=== PATIENT | male | born 1970 | race Caucasian/White ===

== ENCOUNTER 2016-07-31 10:51 | Emergency (ER) | payer OTHER ==
[~2016-07-31] VITALS: Ht 182.9 cm; Wt 106.0 kg
[~2016-07-31 10:51] MED LIST: BUSP10 PO; FLUP10TA5 PO; FLUT50SP EACH NARE; LOSA50TA PO; PROP10TA26 PO; TRAZ100 PO
[2016-07-31 11:01] VITALS: BP 150/76; PULSE 85; RESP 20; TEMP 98; O2SAT 95
--- NOTE | 2016-07-31 11:14 | PD ---
HPI Chief Complaint: Psychiatric Symptoms Time Seen by Provider: 11:00 Travel History International Travel<30 days: No Contact w/Intl Traveler<30days: No Traveled to known affect area: No History of Present Illness HPI The patient is a 46-year-old male who presents emergency [place] a [employer] act. The patient has a history of schizoaffective disorder, is currently having delusions that the "Cult" is out to get him. The patient also states that he has transmitted is in his head and has been having bowel movements containing microwaves. The patient also states that he loaned Pres. Ivaluaump his first one million dollars. The patient does have a history of schizoaffective disorder, has not taken his fluphenazine or trazodone over the last 2 days. He denies any alcohol use, does smoke marijuana occasionally. He denies any current suicidal or homicidal ideation. He is currently having delusions, but denies any auditory or visual hallucinations. He denies any current physical complaints. PFSH Past Medical History Hx Anticoagulant Therapy: No Arthritis: No Asthma: No Bipolar Disorder: Yes Anxiety: Yes Depression: Yes Heart Rhythm Problems: No Cardiovascular Problems: No High Cholesterol: No Chemotherapy: No Chest Pain: No Congestive Heart Failure: No COPD: No Cerebrovascular Accident: Yes (htn) Diabetes: No Diminished Hearing: No Gastrointestinal Disorders: No GERD: No Glaucoma: Yes Genitourinary: No Headaches: No Hepatitis: No Hiatal Hernia: No Hypertension: Yes Kidney Stones: No Musculoskeletal: No Neurologic: No Psychiatric: Yes (SCHIZO-AFFECTIVE) Reproductive: No Respiratory: Yes (COPD) Immunizations Current: Yes Migraines: No Myocardial Infarction: No Renal Failure: No Schizophrenia: Yes Sleep Apnea: No Ulcer: No Past Surgical History Abdominal Surgery: No Appendectomy: No Cardiac Surgery: No Cholecystectomy: No Ear Surgery: No Endocrine Surgery: No Eye Surgery: No Genitourinary Surgery: No Gynecologic Surgery: No Neurologic Surgery: No Oral Surgery: No Thoracic Surgery: No Other Surgery: Yes (BB removal) Social History Alcohol Use: No (DENIES) Tobacco Use: Yes (2-3 PPD) Substance Use: Yes (MARIJUANA OCCASIONALLY) Allergies-Medications (Allergen,Severity, Reaction): Coded Allergies: Depakote (Verified Allergy, Severe, HIVES, 02/10/16) [place] (Verified Allergy, Severe, HIVES, 02/10/16) Neurontin (Verified Allergy, Severe, 'GET(S) HOT AND OTHER BAD THINGS, ) Abilify (Verified Allergy, Intermediate, SPIKES HIS BP, 02/10/16) Tegretol (Verified Allergy, Mild, 02/10/16) Reported Meds & Prescriptions Reported Meds & Active Scripts Active Fluticasone Nasal [place] 50 Mcg/Act Naspr 50 Mcg EACH NARE BID 50 mcg/spray Losartan (Losartan Potassium) 50 Mg Tab 50 Mg PO DAILY Reported Buspar 10 Mg Ta10 Mg 10 Mg Tab 10 Mg PO Q8 [id number] Mg 10 Mg Tab 10 Mg PO BID Trazodone HCl 100 Mg Tab 100 Mg PO HS Prolixin (Fluphenazine HCl) 10 Mg Tab 10 Mg PO BID Review of Systems Except as stated in HPI: all other systems reviewed are Neg General / Constitutional: No: Fever HENT: No: Lightheadedness Cardiovascular: No: Chest Pain or Discomfort Respiratory: No: Shortness of Breath Gastrointestinal: No: Nausea, Vomiting, Abdominal Pain Musculoskeletal: No: Weakness Psychiatric: Positive: Disorder of Thought, Substance Abuse (marijuana use), No: Suicidal Ideations, Homicidal Ideation Physical Exam Narrative GENERAL: Awake, alert, pleasant 46-year-old male who appears his stated age and is in no acute respiratory distress. SKIN: Focused skin assessment warm/dry. HEAD: Atraumatic. Normocephalic. EYES: Pupils equal and round. Pupils are 3 mm bilateral. ENT: No nasal bleeding or discharge. Poor dentition. NECK: Trachea midline. No JVD. CARDIOVASCULAR: Regular rate and rhythm. No murmur appreciated. RESPIRATORY: No accessory muscle use. Clear to auscultation. Breath sounds equal bilaterally. GASTROINTESTINAL: Abdomen soft, non-tender, nondistended. No rebound tenderness. MUSCULOSKELETAL: No obvious deformities. No clubbing. No cyanosis. No edema. NEUROLOGICAL: Awake and alert. No obvious cranial nerve deficits. Motor grossly within normal limits. Normal speech. Nonfocal. Oriented 5. PSYCHIATRIC: Obvious delusions upon interview. Data Data Last Documented VS Vital Signs Date Time Temp Pulse Resp B/P Pulse Ox O2 Delivery O2 Flow Rate FiO2 07/31/16 11:01 98.0 85 20 150/76 95 Orders Complete Blood Count With Diff (07/31/16 11:07) Comprehensive Metabolic Panel (07/31/16 11:07) Psych Screen (07/31/16 11:07) Drug Screen, Random Urine (07/31/16 11:07) Alcohol (Ethanol) (07/31/16 11:07) MDM Medical Decision Making Medical Screen Exam Complete: Yes Emergency Medical Condition: Yes Medical Record Reviewed: Yes Differential Diagnosis Differential diagnosis includes schizoaffective disorder, schizophrenia, psychosis, delusional disorder, noncompliance, substance induced mood disorder. Narrative Course Labs were drawn and sent. Psychiatric evaluation was ordered. Condition: Stable Xander Chun MD July 31, 2016 11:14
[2016-07-31] MEDS ORDERED: FLUP10TA PO (11:20)
[2016-07-31] MEDS ORDERED: PROP10TA6 PO (11:20)
[2016-07-31] MEDS ORDERED: TRAZ100T4 PO (11:20)
[2016-07-31 11:32] LABS: AUTOMATED NEUTROPHIL # 12.8 TH/MM3 (1.8-7.7); BASOPHIL # 0.1 TH/MM3 (0-0.2); BASOPHIL % 0.8 % (0.0-2.0); EOSINOPHIL # 0.2 TH/MM3 (0-0.4); EOSINOPHIL % 1.3 % (0.0-4.0); HEMATOCRIT 46.5 % (39.0-51.0); HEMO FLAGS DIFF FINAL; LYMPH % 17.6 % (9.0-44.0); LYMPHOCYTE # 3.1 TH/MM3 (1.0-4.8); MEAN CELL VOLUME 87.2 FL (80.0-100.0); MEAN CORPUSCULAR HEMOGLOBIN 30.1 PG (27.0-34.0); MEAN CORPUSCULAR HGB CONC 34.5 % (32.0-36.0); MONO % 8.5 % (0.0-8.0); NEUT % 71.8 % (16.0-70.0); PLATELET COUNT 340 TH/MM3 (150-450); RED BLOOD COUNT 5.33 MIL/MM3 (4.50-5.90); RED CELL DISTRIBUTION WIDTH 14.7 % (11.6-17.2); WHITE BLOOD COUNT 17.8 TH/MM3 (4.0-11.0)
[2016-07-31 11:52] LABS: ALT (GPT) 23 U/L (12-78); ANION GAP 10 MEQ/L (5-15); AST (GOT) 29 U/L (15-37); BICARBONATE 24.4 MEQ/L (21.0-32.0); BLOOD UREA NITROGEN 9 MG/DL (7-18); CHLORIDE 103 MEQ/L (98-107); GLOMERULAR FILTRATION RATE 86 ML/MIN (>89); POTASSIUM 3.7 MEQ/L (3.5-5.1); SODIUM (NA) 137 MEQ/L (136-145)
[2016-07-31 11:54] LABS: ALKALINE PHOSPHATASE 96 U/L (45-117); TOTAL BILIRUBIN ADULT 0.5 MG/DL (0.2-1.0)
[2016-07-31 13:13] LABS: AMPHETAMINE, URINE NEG (NEG); BARBITURATES, URINE NEG (NEG); COCAINE, URINE NEG (NEG)
[2016-07-31 15:46] VITALS: BP 146/86; PULSE 74; RESP 20; TEMP 98.6; O2SAT 96
--- NOTE | 2016-07-31 16:38 | PD ---
History of Present Illness Chief Complaint: Psychiatric Symptoms Time Seen by Provider: 16:30 Travel History International Travel<30 Days: No Contact w/Intl Traveler<30days: No Known affected area: No Legal Status Legal Status: Kraft Act K[employer] Act Signed By: Osmel Best History of Present Illness: History of Present Illness HPI The patient is a 46-year-old male with history of schizoaffective disorder bipolar type who presents emergency department [place] as a [employer] act. As per ED documentation included here " The patient has a history of schizoaffective disorder, is currently having delusions that the "Cult" is out to get him. The patient also states that he has transmitters is in his head and has been having bowel movements containing microwaves. The patient also states that he loaned Pres. Trump his first one million dollars." Patient is seen in J pod. Alert and oriented. He is calm. Speech is pressured. He tells me that he has not taken his medication because [place] [address] [place] . He also states that him being here is a big mistake and that Dr. Garcia knows him and that he will not harm anyone and he does not want to harm himself either. He does not want to discuss any other information because " Dr. Garcia and Frank at [facility] know me and know that I I am just a nice saniya with a real bad disease. He nevertheless agrees to remain here until we can obtain further information as well as to get back on his medication. . Telephone call to his mother , Ms Hu at [phone]. She reports that patient cashed his check on the third and left the house and did not return to the house until today. She states that he has been making "odd statements" such as that she was trying to turn the sun off, talking to his invisible man as well as not having slept in 3 days. She counted his medications and he has not taken his medications in over 1 week. His girlfriend committed suicide in May of 2016 and she believes that he has not been dealing well with this loss. PFSH Past Medical History Hx Anticoagulant Therapy: No Arthritis: No Asthma: No Bipolar Disorder: Yes Anxiety: Yes Depression: Yes Heart Rhythm Problems: No Cardiovascular Problems: No High Cholesterol: No Chemotherapy: No Chest Pain: No Congestive Heart Failure: No COPD: No Cerebrovascular Accident: Yes (htn) Diabetes: No Diminished Hearing: No Gastrointestinal Disorders: No GERD: No Glaucoma: Yes Genitourinary: No Headaches: No Hepatitis: No Hiatal Hernia: No Hypertension: Yes Kidney Stones: No Musculoskeletal: No Neurologic: No Psychiatric: Yes (SCHIZO-AFFECTIVE) Reproductive: No Respiratory: Yes (COPD) Immunizations Current: Yes Migraines: No Myocardial Infarction: No Renal Failure: No Schizophrenia: Yes Sleep Apnea: No Ulcer: No Past Surgical History Abdominal Surgery: No Appendectomy: No Cardiac Surgery: No Cholecystectomy: No Ear Surgery: No Endocrine Surgery: No Eye Surgery: No Genitourinary Surgery: No Gynecologic Surgery: No Neurologic Surgery: No Oral Surgery: No Thoracic Surgery: No Other Surgery: Yes (BB removal) Psychiatric History Psychiatric History Hx Psychiatric Treatment: HX SCHIZOAFFECTIVE DISORDER, PSYCHOSIS, SUICIDAL IDEATIONS, PSA. Outpatietn t[facility]ametn at [facility]. History of Inpatient Treatment: Yes ([facility] [place]) Social History Single male.Lives with his mother. On disability Hx Alcohol Use: Yes (occasionally) Hx Tobacco Use: Yes (2-3 PPD) Hx Substance Use: Yes (MARIJUANA OCCASIONALLY) Substance Use Type: Alcohol, Marijuana Other Substances Used: REPORTS TO OCCASIONAL ALCOHOL USE AND STATES HE DOES USE MARIJUANNA Hx of Substance Use Treatment: No Family Psychiatric History none reported Allergies-Medications (Allergen,Severity, Reaction): Coded Allergies: Depakote (Verified Allergy, Severe, HIVES, 07/31/16) [place] (Verified Allergy, Severe, HIVES, 07/31/16) Neurontin (Verified Allergy, Severe, 'GET(S) HOT AND OTHER BAD THINGS, 07/31) Abilify (Verified Allergy, Intermediate, SPIKES HIS BP, 07/31/16) Tegretol (Verified Allergy, Mild, 07/31/16) Reported Meds & Prescriptions Reported Meds & Active Scripts Active Fluticasone Nasal [place] 50 Mcg/Act Naspr 50 Mcg EACH NARE BID 50 mcg/spray Losartan (Losartan Potassium) 50 Mg Tab 50 Mg PO DAILY Reported Propranolol (Propranolol HCl) 10 Mg Tab 10 Mg PO Q12HR Fluphenazine (Fluphenazine HCl) 10 Mg Tab 10 Mg PO BID Trazodone (Trazodone HCl) 100 Mg Tab 100 Mg PO HS Review of Systems Eyes: COMPLAINS OF: Vision loss Psychiatric: COMPLAINS OF: Delusions Exam Alert: Yes [place]: Person (ox4) Mood: Anxious Affect: Appropriate Speech: Clear, Fast, Flight [place] Ideas Eye Contact: Normal Memory Intact: Comment (not impaired) Hallucinations: Other (deneis but observed responding to ) Delusions: Yes Delusion Type: Other Suicidal: Ideation (deneis any) Homicidal: Ideation (deneis any) Insight/Judgement fair. poor MDM Medical Decision Making Medical Record Reviewed: Yes Assessment/Plan 46 year old male with hx of schizoaffective disorder under a BA. Patient has not taken his medication in approximately one wekk. His mother reports that he is getting more agitated and has been talking to his invisible friend. At [facility] time the patient agrees to stay and to restart his medication. He will be presented for possible admission the [facility] as there are no appropriate bed to meet his current needs on our inpatietn unit. If not accepted he will be reevaluated in the morning by psychiatrist. Orders Complete Blood Count With Diff (07/31/16 11:07) Comprehensive Metabolic Panel (07/31/16 11:07) Psych Screen (07/31/16 11:07) Drug Screen, Random Urine (07/31/16 11:07) Alcohol (Ethanol) (07/31/16 11:07) Diet Regular Basic (07/31/16 Lunch) Fluphenazine (Prolixin) (07/31/16 21:00) Losartan (Cozaar) (07/31/16 17:00) Propranolol (Inderal) (07/31/16 21:00) Fluphenazine (Prolixin) (07/31/16 16:45) Results Vital Signs Date Time Temp Pulse Resp B/P Pulse Ox O2 Delivery O2 Flow Rate FiO2 07/31/16 15:46 98.6 74 20 146/86 96 07/31/16 11:01 98.0 85 20 150/76 95 Laboratory Tests Test 07/31/16 07/31/16 11:10 12:46 White Blood Count 17.8 Red Blood Count 5.33 Hemoglobin 16.0 Hematocrit 46.5 Mean Corpuscular Volume 87.2 Mean Corpuscular Hemoglobin 30.1 Mean Corpuscular Hemoglobin 34.5 Concent Red Cell Distribution Width 14.7 Platelet Count 340 Mean Platelet Volume 7.5 Neutrophils (%) (Auto) 71.8 Lymphocytes (%) (Auto) 17.6 Monocytes (%) (Auto) 8.5 Eosinophils (%) (Auto) 1.3 Basophils (%) (Auto) 0.8 Neutrophils # (Auto) 12.8 Lymphocytes # (Auto) 3.1 Monocytes # (Auto) 1.5 Eosinophils # (Auto) 0.2 Basophils # (Auto) 0.1 CBC Comment DIFF FINAL Differential Comment Sodium Level 137 Potassium Level 3.7 Chloride Level 103 Carbon Dioxide Level 24.4 Anion Gap 10 Blood Urea Nitrogen 9 Creatinine 0.94 Estimat Glomerular Filtration 86 Rate Random Glucose 112 Calcium Level 9.2 Total Bilirubin 0.5 Aspartate Amino Transf 29 (AST/SGOT) Alanine Aminotransferase 23 (ALT/SGPT) Alkaline Phosphatase 96 Total Protein 8.2 Albumin 4.1 Ethyl Alcohol Level LESS THAN 3 Urine Opiates Screen NEG Urine Barbiturates Screen NEG Urine Amphetamines Screen NEG Urine Benzodiazepines Screen NEG Urine Cocaine Screen NEG Urine Cannabinoids Screen POS Diagnosis Primary Impression: Schizoaffective disorder Condition: Stable Problem Qualifiers Primary Impression: Schizoaffective disorder Qualified Code: F25.0 - Schizoaffective disorder, bipolar type Gely Radford July 31, 2016 16:38
[2016-07-31] MEDS: LOSARTAN 50 MG TAB PO SCH (17:00)
[2016-07-31 18:30] VITALS: BP 152/72; PULSE 72; RESP 20; TEMP 98.6; O2SAT 98
[2016-07-31] MEDS ORDERED: traZODone HCL 100 MG TAB PO SCH (21:00)
[2016-07-31] MEDS: PROPRANOLOL HCL 10 MG TAB PO SCH (21:16)
[2016-07-31 22:34] VITALS: BP 148/78; PULSE 72; RESP 18; O2SAT 98
[2016-08-01 02:23] VITALS: BP 140/87; PULSE 71; RESP 18; O2SAT 98
[2016-08-01 06:37] VITALS: BP 116/58; PULSE 58; RESP 19; O2SAT 100
[2016-08-01 10:30] VITALS: BP 139/66; PULSE 82; RESP 18
[2016-08-01] MEDS: PROPRANOLOL HCL 10 MG TAB PO SCH (10:56)
[2016-08-01] MEDS: LOSARTAN 50 MG TAB PO SCH (10:56)
== END 2016-08-01 13:45 ==
LOC: NEPE 10:51 → NEPJ 08-01 13:45
DX: F25.0 Schizoaffective disorder, bipolar type (principal); Z79.899 Other long term (current) drug therapy
CPT/HCPCS: 80053; 80307; 85025; 99284

== ENCOUNTER 2016-09-06 08:20 | Emergency (ER) | payer OTHER ==
[~2016-09-06] VITALS: Ht 182.9 cm; Wt 107.0 kg
[~2016-09-06 08:20] MED LIST changes: -BUSP10 PO; +FLUP10TA PO; -FLUP10TA5 PO; -PROP10TA26 PO; +PROP10TA6 PO; -TRAZ100 PO; +TRAZ100T4 PO
[2016-09-06 08:25] VITALS: BP 146/89; PULSE 68; RESP 16; TEMP 97.7; O2SAT 95
[2016-09-06] MEDS ORDERED: TRAZ100T6 PO (08:36)
--- NOTE | 2016-09-06 08:42 | PD ---
HPI Chief Complaint: Skin Problem Time Seen by Provider: 08:39 Travel History International Travel<30 days: No Contact w/Intl Traveler<30days: No Traveled to known affect area: No History of Present Illness HPI This patient complains of a bleeding lesion under his scrotum. He's had it on and off for months. No injury. Severity is mild PFSH Past Medical History Hx Anticoagulant Therapy: No Arthritis: No Asthma: No Bipolar Disorder: Yes Anxiety: Yes Depression: Yes Heart Rhythm Problems: No Cardiovascular Problems: No High Cholesterol: No Chemotherapy: No Chest Pain: No Congestive Heart Failure: No COPD: No Cerebrovascular Accident: Yes (htn) Diabetes: No Diminished Hearing: No Gastrointestinal Disorders: No GERD: No Glaucoma: Yes Genitourinary: No Headaches: No Hepatitis: No Hiatal Hernia: No Hypertension: Yes Kidney Stones: No Musculoskeletal: No Neurologic: No Psychiatric: Yes (SCHIZO-AFFECTIVE) Reproductive: No Respiratory: Yes (COPD) Immunizations Current: Yes Migraines: No Myocardial Infarction: No Renal Failure: No Schizophrenia: Yes Sleep Apnea: No Ulcer: No Tetanus Vaccination: < 5 Years ?: Not Past Surgical History Abdominal Surgery: No Appendectomy: No Cardiac Surgery: No Cholecystectomy: No Ear Surgery: No Endocrine Surgery: No Eye Surgery: No Genitourinary Surgery: No Gynecologic Surgery: No Neurologic Surgery: No Oral Surgery: No Thoracic Surgery: No Other Surgery: Yes (BB removal) Social History Alcohol Use: Yes (occasionally) Tobacco Use: Yes (2-3 PPD) Substance Use: Yes (MARIJUANA OCCASIONALLY) Allergies-Medications (Allergen,Severity, Reaction): Coded Allergies: Depakote (Verified Allergy, Severe, HIVES, 09/06/16) [place] (Verified Allergy, Severe, HIVES, 09/06/16) Neurontin (Verified Allergy, Severe, 'GET(S) HOT AND OTHER BAD THINGS, 02/12) Abilify (Verified Allergy, Intermediate, SPIKES HIS BP, 09/06/16) Tegretol (Verified Allergy, Mild, 09/06/16) Reported Meds & Prescriptions Reported Meds & Active Scripts Active Fluticasone Nasal [place] 50 Mcg/Act Naspr 50 Mcg EACH NARE BID 50 mcg/spray Losartan (Losartan Potassium) 50 Mg Tab 50 Mg PO DAILY Reported Trazodone (Trazodone HCl) 100 Mg Tablet 100 Mg PO HS Propranolol (Propranolol HCl) 10 Mg Tab 10 Mg PO Q12HR Fluphenazine (Fluphenazine HCl) 10 Mg Tab 10 Mg PO BID Review of Systems General / Constitutional: No: Fever HENT: No: Headaches Cardiovascular: No: Chest Pain or Discomfort Physical Exam Narrative : Large genital warts on the penis Underneath the scrotum is a pinpoint area where it looks like a blood vessel has eroded near the surface of the skin GASTROINTESTINAL: Abdomen soft, non-tender, nondistended. Positive bowel sounds. No hepato-splenomegaly, or palpable masses. No guarding. SKIN: Focused skin assessment reveals no rash or ulcers. Skin is warm and dry. Palpation shows no induration or nodules. Data Data Last Documented VS Vital Signs Date Time Temp Pulse Resp B/P Pulse Ox O2 Delivery O2 Flow Rate FiO2 09/06/16 08:25 97.7 68 16 146/89 95 Orders Gelatin 12 Mm/7 Mm Top (Gelfoam 12 Mm/7 (09/06/16 08:45) MDM Medical Decision Making Medical Screen Exam Complete: Yes Emergency Medical Condition: Yes Medical Record Reviewed: Yes Differential Diagnosis Laceration, contusion, AVM Narrative Course I have reviewed the patient's electronic medical record. I applied Gelfoam dressing to the area followed by some 2 x 2 padding and secured it with Band-Aids The patient was advised to follow up with their physician and return if they worsen. Diagnosis Primary Impression: Bleeding pigmented skin lesion Additional Instructions: The patient was advised to follow up with their physician and return if they worsen. Med/Other Pt SpecificInfo: Other Disposition: 01 DISCHARGE HOME Condition: Stable Khai Almonte MD Sep 06, 2016 08:42
[2016-09-06] MEDS ORDERED: GELATIN 12 MM/7 MM FOAM TOPICAL ONE (08:45)
== END 2016-09-06 08:48 | disposition home or self-care (01) ==
LOC: PHED 08:20
DX: R58 Hemorrhage, not elsewhere classified (principal); L98.9 Disorder of the skin and subcutaneous tissue, unspecified; I10 Essential (primary) hypertension; J44.9 Chronic obstructive pulmonary disease, unspecified; F17.210 Nicotine dependence, cigarettes, uncomplicated; Z86.73 Personal history of transient ischemic attack (TIA), and cerebral infarction without residual deficits
CPT/HCPCS: 12001

== ENCOUNTER 2017-04-26 12:11 | Inpatient (IN) | payer OTHER, MEDICARE ==
[~2017-04-26] VITALS: Ht 182.9 cm; Wt 106.8 kg
[~2017-04-26 12:11] MED LIST changes: +TRAZ100T10 PO; -TRAZ100T4 PO
[2017-04-26 12:18] VITALS: BP 168/72; PULSE 75; RESP 16; TEMP 98; O2SAT 96
--- NOTE | 2017-04-26 12:21 | PD ---
HPI Chief Complaint: BA/Psych Time Seen by Provider: 12:20 Travel History International Travel<30 days: No Contact w/Intl Traveler<30days: No History of Present Illness HPI 47-year-old male with long psychiatric history is brought into the [employer] act after threatening to bludgeon his mother earlier today. Patient does not deny this. He also speaks of wanting to wait for his family reunion with Latasha Brasher so he can seal her doom. Patient denies any medical issues. He is known to be legally blind. He is an unreliable historian. He has multiple allergies, please see list. PFSH Past Medical History Hx Anticoagulant Therapy: No Arthritis: No Asthma: No Bipolar Disorder: Yes Anxiety: Yes Depression: Yes Heart Rhythm Problems: No Cardiovascular Problems: No High Cholesterol: No Chemotherapy: No Chest Pain: No Congestive Heart Failure: No COPD: No Cerebrovascular Accident: Yes (htn) Diabetes: No Diminished Hearing: No Gastrointestinal Disorders: No GERD: No Glaucoma: Yes Genitourinary: No Headaches: No Hepatitis: No Hiatal Hernia: No Hypertension: Yes Kidney Stones: No Musculoskeletal: No Neurologic: No Psychiatric: Yes (SCHIZO-AFFECTIVE) Reproductive: No Respiratory: Yes (COPD) Immunizations Current: Yes Migraines: No Myocardial Infarction: No Renal Failure: No Schizophrenia: Yes Sleep Apnea: No Ulcer: No Past Surgical History Abdominal Surgery: No Appendectomy: No Cardiac Surgery: No Cholecystectomy: No Ear Surgery: No Endocrine Surgery: No Eye Surgery: No Genitourinary Surgery: No Gynecologic Surgery: No Neurologic Surgery: No Oral Surgery: No Thoracic Surgery: No Other Surgery: Yes (BB removal) Social History Alcohol Use: Yes (occasionally) Tobacco Use: Yes (2-3 PPD) Substance Use: Yes (MARIJUANA OCCASIONALLY) Allergies-Medications (Allergen,Severity, Reaction): Coded Allergies: divalproex sodium (Unverified Allergy, Severe, HIVES, 04/26/17) gabapentin (Unverified Allergy, Severe, 'GET(S) HOT AND OTHER BAD THINGS, 04/26/17) lithium (Unverified Allergy, Severe, HIVES, 04/26/17) aripiprazole (Unverified Allergy, Intermediate, SPIKES HIS BP, 04/26/17) carbamazepine (Unverified Allergy, Mild, 04/26/17) Reported Meds & Prescriptions Reported Meds & Active Scripts Active Fluticasone Nasal [place] 50 Mcg/Act Naspr 50 Mcg EACH NARE BID 50 mcg/spray Losartan (Losartan Potassium) 50 Mg Tab 50 Mg PO DAILY Reported Haloperidol 5 Mg Tab 5 Mg PO TID Trazodone (Trazodone HCl) 100 Mg Tablet 100 Mg PO HS Propranolol (Propranolol HCl) 10 Mg Tab 10 Mg PO Q12HR Fluphenazine (Fluphenazine HCl) 10 Mg Tab 10 Mg PO BID Review of Systems ROS Limitations: Clinical Condition, Psychotic Except as stated in HPI: all other systems reviewed are Neg General / Constitutional: No: Fever Eyes: No: Visual changes HENT: No: Headaches Cardiovascular: No: Chest Pain or Discomfort Respiratory: No: Shortness of Breath Gastrointestinal: No: Abdominal Pain Genitourinary: No: Dysuria Musculoskeletal: No: Pain Skin: No Rash Neurologic: No: Weakness Psychiatric: No: Depression Endocrine: No: Polydipsia Hematologic/Lymphatic: No: Easy Bruising Physical Exam Exam Limitations: Psychotic Narrative GENERAL: Patient is cooperative. SKIN: Warm and dry. Normal color. Normal turgor. No rash. No signs of trauma. HEAD: Atraumatic. Normocephalic. EYES: Pupils equal and round. No scleral icterus. No injection or drainage. ENT: No nasal bleeding or discharge. Mucous membranes pink and moist. Pharynx is clear. Airway is patent. NECK: Trachea midline. Neck is supple CARDIOVASCULAR: Regular rate and rhythm. RESPIRATORY: No accessory muscle use. Clear to auscultation. Breath sounds equal bilaterally. MUSCULOSKELETAL: Extremities without clubbing, cyanosis, or edema. No obvious deformities. NEUROLOGICAL: Awake and alert. No obvious cranial nerve deficits. Motor grossly within normal limits. Five out of 5 muscle strength in the arms and legs. Normal speech. PSYCHIATRIC: Appropriate mood and affect; insight and judgment normal. Data Data Last Documented VS Vital Signs Date Time Temp Pulse Resp B/P (MAP) Pulse Ox O2 Delivery O2 Flow Rate FiO2 04/26/17 12:28 98.0 75 16 168/72 (104) 96 Room Air Orders Orders Complete Blood Count With Diff (04/26/17 12:21) Comprehensive Metabolic Panel (04/26/17 12:21) Thyroid Stimulating Hormone (04/26/17 12:21) Urinalysis - C+S If Indicated (04/26/17 12:21) Psych Screen (04/26/17 12:21) Drug Screen, Random Urine (04/26/17 12:21) Alcohol (Ethanol) (04/26/17 12:21) Diet Regular Basic (04/26/17 Lunch) MDM Medical Decision Making Medical Screen Exam Complete: Yes Emergency Medical Condition: Yes Medical Record Reviewed: Yes Differential Diagnosis Kraft act. Homicidal. Psychosis. Medical clearance. Narrative Course Patient appears medically stable at time of exam. Labs ordered as per psychiatric protocol including alcohol. Psych screen is ordered. Patient is medically clear for psychiatric evaluation Condition: Stable Umberto Hatfield Apr 26, 2017 12:21
[2017-04-26] MEDS ORDERED: HALO5TAB PO (12:25)
[2017-04-26 12:28] VITALS: BP 168/72; PULSE 75; RESP 16; TEMP 98; O2SAT 96
[2017-04-26 13:16] LABS: AUTOMATED NEUTROPHIL # 4.7 TH/MM3 (1.8-7.7); BASOPHIL # 0.1 TH/MM3 (0-0.2); BASOPHIL % 0.7 % (0.0-2.0); EOSINOPHIL # 0.1 TH/MM3 (0-0.4); EOSINOPHIL % 1.1 % (0.0-4.0); HEMATOCRIT 40.6 % (39.0-51.0); LYMPH % 32.6 % (9.0-44.0); LYMPHOCYTE # 2.8 TH/MM3 (1.0-4.8); MEAN CELL VOLUME 87.9 FL (80.0-100.0); MEAN CORPUSCULAR HEMOGLOBIN 32.5 PG (27.0-34.0); MEAN PLATELET VOLUME 7.1 FL (7.0-11.0); MONO % 11.1 % (0.0-8.0); NEUT % 54.5 % (16.0-70.0); PLATELET COUNT 292 TH/MM3 (150-450); RED BLOOD COUNT 4.62 MIL/MM3 (4.50-5.90); WHITE BLOOD COUNT 8.7 TH/MM3 (4.0-11.0)
[2017-04-26 13:20] LABS: MEAN CORPUSCULAR HGB CONC 36.9 % (32.0-36.0)
[2017-04-26 13:22] LABS: BILIRUBIN, URINE NEG (NEG); BLOOD, URINE SMALL (NEG); GLUCOSE,URINE NEG (NEG); KETONE, URINE 40 mg/dL (NEG); NITRITE,URINE NEG (NEG); SQUAMOUS EPITHELIAL CELL URINE <1 /hpf (0-5); URINE COLOR YELLOW (YELLW/STRAW); URINE LEUKOCYTE ESTERASE NEG (NEG)
[2017-04-26 13:34] LABS: ALBUMIN 3.8 GM/DL (3.4-5.0); ALT (GPT) 18 U/L (12-78); AST (GOT) 18 U/L (15-37); BICARBONATE 23.5 MEQ/L (21.0-32.0); BLOOD UREA NITROGEN 12 MG/DL (7-18); CALCIUM 8.9 MG/DL (8.5-10.1); CHLORIDE 103 MEQ/L (98-107); CREATININE 0.88 MG/DL (0.60-1.30); GLOMERULAR FILTRATION RATE 92 ML/MIN (>89); GLUCOSE,RANDOM 81 MG/DL (74-106); SODIUM (NA) 136 MEQ/L (136-145)
[2017-04-26 13:45] LABS: ALKALINE PHOSPHATASE 80 U/L (45-117); TOTAL BILIRUBIN ADULT 0.5 MG/DL (0.2-1.0); TOTAL PROTEIN 7.7 GM/DL (6.4-8.2)
[2017-04-26 15:55] VITALS: BP 165/83; PULSE 72; RESP 18; O2SAT 97
[2017-04-26] MEDS ORDERED: LORazepam 2 MG/ML VIAL IV PUSH ONE (18:15)
[2017-04-26 22:21] VITALS: BP 151/72; PULSE 71; RESP 18; O2SAT 97
[2017-04-26] MEDS ORDERED: HALOPERIDOL 10 MG TAB PO ONE (22:45)
[2017-04-27 06:20] VITALS: BP 140/70; PULSE 65; RESP 18; O2SAT 96
--- NOTE | 2017-04-27 09:27 | PD ---
History of Present Illness Chief Complaint: Psychiatric Symptoms Time Seen by Provider: 09:15 Travel History International Travel<30 Days: No Contact w/Intl Traveler<30days: No Known affected area: No Legal Status Legal Status: Kraft Act Kraft Act Signed By: Osmel Best History of Present Illness: History of Present Illness HPI 47-year-old male with record history of schizoaffective disorder, bipolar type, schizophrenia who is brought into the Kraft act initiated by law enforcement. The report alleges that he threatened to bludgeon his mother and that he is awaiting his family reunion with Latasha Brasher and others to steal his mother's doom. It also states that he is in the process of changing medications. Patient required ETO of Haldol and Ativan while in the ED. Electronic medical record is reviewed. The patient has had multiple contacts with [facility] psychiatry dating back to 2005. He was last evaluated in July 2016 and at that time he was referred to the [facility]. Patient is seen with nurse Khai. Patient is alert, and oriented with disheveled appearance. Speech is hyperverbal. The patient is presently psychotic with disorganized thoughts. He states that he is here because "my mother is a very dark creature", I am tired and manic, I need a 36 year boundary around me, the magnetic shield is on, people terrorize me." His affect is labile. He reports he hasn't been sleeping well and actually states he's not sure when he slept last. There is also reports that his medications are being adjusted prior to him coming to the ED. He denies hallucinations. Denies suicidal ideation. He reports medication compliance. PFSH Past Medical History Hx Anticoagulant Therapy: No Arthritis: No Asthma: No Bipolar Disorder: Yes Anxiety: Yes Depression: Yes Heart Rhythm Problems: No Cardiovascular Problems: Yes High Cholesterol: No Chemotherapy: No Chest Pain: No Congestive Heart Failure: No COPD: No Cerebrovascular Accident: Yes (htn) Diabetes: No Diminished Hearing: No Gastrointestinal Disorders: No GERD: Yes Glaucoma: Yes Genitourinary: No Headaches: No Hepatitis: No Hiatal Hernia: No Hypertension: Yes Kidney Stones: No Musculoskeletal: No Neurologic: No Psychiatric: Yes (SCHIZO-AFFECTIVE) Reproductive: No Respiratory: Yes (COPD) Immunizations Current: Yes Migraines: No Myocardial Infarction: No Renal Failure: No Schizophrenia: Yes Seizures: Yes (DESCRIBES SOMETHING THAT SOUNDS LIKE JACKSONIAN SEIZURES. HEAD TRAUMA KI) Sleep Apnea: No Ulcer: No Tetanus Vaccination: Unknown Influenza Vaccination: Yes Past Surgical History Abdominal Surgery: No Appendectomy: No Cardiac Surgery: No Cholecystectomy: No Ear Surgery: No Endocrine Surgery: No Eye Surgery: No Genitourinary Surgery: No Gynecologic Surgery: No Neurologic Surgery: No Oral Surgery: No Thoracic Surgery: No Other Surgery: Yes (BB removal) Psychiatric History Psychiatric History Hx Psychiatric Treatment: HX OF SCHIZOAFFECTIVE DISORDER. SEES SASHA AT [facility] AN OUTPATIENT. HE SAYS THAT HE IS MED COMPLIANT. Last psychiatric hospitalization in 2017 and the [facility] History of Inpatient Treatment: Yes Guns or firearms in home: No Social History Single, male who lives with his mother. He is on disability. Hx Alcohol Use: Yes (occasionally) Hx Tobacco Use: Yes (2-3 PPD) Hx Substance Use: No Substance Use Type: Alcohol, Marijuana Other Substances Used: PAST ALCOHOL, MARIJUANA CRACK. Current toxicology is negative Hx of Substance Use Treatment: No Family Psychiatric History Negative Allergies-Medications (Allergen,Severity, Reaction): Coded Allergies: divalproex sodium (Unverified Allergy, Severe, HIVES, 04/26/17) gabapentin (Unverified Allergy, Severe, 'GET(S) HOT AND OTHER BAD THINGS, 04/26/17) lithium (Unverified Allergy, Severe, HIVES, 04/26/17) aripiprazole (Unverified Allergy, Intermediate, SPIKES HIS BP, 04/26/17) carbamazepine (Unverified Allergy, Mild, 04/26/17) Reported Meds & Prescriptions Reported Meds & Active Scripts Active Fluticasone Nasal [place] 50 Mcg/Act Naspr 50 Mcg EACH NARE BID 50 mcg/spray Losartan (Losartan Potassium) 50 Mg Tab 50 Mg PO DAILY Reported Haloperidol 5 Mg Tab 5 Mg PO TID Trazodone (Trazodone HCl) 100 Mg Tablet 100 Mg PO HS Propranolol (Propranolol HCl) 10 Mg Tab 10 Mg PO Q12HR Fluphenazine (Fluphenazine HCl) 10 Mg Tab 10 Mg PO BID Review of Systems ROS Limitations: Psychotic Mental Status Examination Appearance: Disheveled Consciousness: Alert Orientation: x4 Motor Activity: Normal gait Speech: Rapid Language: Adequate Fund of Knowledge: Adequate Attention and Concentration: Easily Distracted Memory: Unremarkable Mood: Manic Affect: Labile Thought Process & Associations: Disorganized Thought Content: Racing thoughts, 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 ) Homicidal Plan: No Homicidal Intention: No Insight: Poor Judgment: Poor MDM Medical Decision Making Medical Record Reviewed: Yes Assessment/Plan 47-year-old single male with history of schizoaffective disorder bipolar type who presents under Kraft act after he threatened to bludgeon his mother. The patient at present is psychotic with significant disorganization of his thought patterns. He continues to have thoughts of harming his mother and describes her as "a dark creature". There are reports that his psychiatric medications are being changed by his outpatient provider . Patient at this time meet criteria for inpatient psychiatric treatment for stabilization, safety, further observation. Orders Orders Complete Blood Count With Diff (04/26/17 12:21) Comprehensive Metabolic Panel (04/26/17 12:21) Thyroid Stimulating Hormone (04/26/17 12:21) Urinalysis - C+S If Indicated (04/26/17 12:21) Psych Screen (04/26/17 12:21) Drug Screen, Random Urine (04/26/17 12:21) Alcohol (Ethanol) (04/26/17 12:21) Diet Regular Basic (04/26/17 Lunch) Haloperidol (Haldol) (04/26/17 22:45) Diet Regular Basic (04/27/17 Breakfast) Results Vital Signs Date Time Temp Pulse Resp B/P (MAP) Pulse Ox O2 Delivery O2 Flow Rate FiO2 04/27/17 06:20 65 18 140/70 (93) 96 Room Air 04/26/17 22:21 71 18 151/72 (98) 97 Room Air 04/26/17 15:55 72 18 165/83 (110) 97 Room Air 04/26/17 12:28 98.0 75 16 168/72 (104) 96 Room Air 04/26/17 12:28 75 16 04/26/17 12:18 98.0 75 16 168/72 (104) 96 Laboratory Tests Test 04/26/17 12:40 White Blood Count 8.7 Red Blood Count 4.62 Hemoglobin 15.0 Hematocrit 40.6 Mean Corpuscular Volume 87.9 Mean Corpuscular Hemoglobin 32.5 Mean Corpuscular Hemoglobin Concent 36.9 Red Cell Distribution Width 15.0 Platelet Count 292 Mean Platelet Volume 7.1 Neutrophils (%) (Auto) 54.5 Lymphocytes (%) (Auto) 32.6 Monocytes (%) (Auto) 11.1 Eosinophils (%) (Auto) 1.1 Basophils (%) (Auto) 0.7 Neutrophils # (Auto) 4.7 Lymphocytes # (Auto) 2.8 Monocytes # (Auto) 1.0 Eosinophils # (Auto) 0.1 Basophils # (Auto) 0.1 CBC Comment AUTO DIFF Differential Comment AUTO DIFF CONFIRMED Urine Color YELLOW Urine Turbidity CLEAR Urine pH 6.0 Urine Specific [place] 1.010 Urine Protein TRACE Urine Glucose (UA) NEG Urine Ketones 40 Urine Occult Blood SMALL Urine Nitrite NEG Urine Bilirubin NEG Urine Urobilinogen LESS THAN 2.0 Urine Leukocyte Esterase NEG Urine RBC 2 Urine WBC 1 Urine Squamous Epithelial Cells <1 Microscopic Urinalysis Comment CULT NOT INDICATED Blood Urea Nitrogen 12 Creatinine 0.88 Random Glucose 81 Total Protein 7.7 Albumin 3.8 Calcium Level 8.9 Alkaline Phosphatase 80 Aspartate Amino Transf (AST/SGOT) 18 Alanine Aminotransferase (ALT/SGPT) 18 Total Bilirubin 0.5 Sodium Level 136 Potassium Level 3.5 Chloride Level 103 Carbon Dioxide Level 23.5 Anion Gap 10 Estimat Glomerular Filtration Rate 92 Thyroid Stimulating Hormone 3rd Gen 0.769 Urine Opiates Screen NEG Urine Barbiturates Screen NEG Urine Amphetamines Screen NEG Urine Benzodiazepines Screen NEG Urine Cocaine Screen NEG Urine Cannabinoids Screen NEG Ethyl Alcohol Level LESS THAN 3 Diagnosis Primary Impression: Schizoaffective disorder Admitting Information Admitting Physician Requests: Admit Condition: Stable Problem Qualifiers Primary Impression: Schizoaffective disorder Qualified Codes: F25.0 - Schizoaffective disorder, bipolar type Gely Radford Apr 27, 2017 09:27
[2017-04-27] MEDS ORDERED: ALUMINUM/MAGNESIUM/SIMETH 30 ML CUP PO PRN (09:45)
[2017-04-27] MEDS ORDERED: ACETAMINOPHEN 325 MG TAB PO PRN (09:45)
[2017-04-27] MEDS ORDERED: MAGNESIUM HYDROXIDE SUSP 30 ML CUP PO PRN (09:45)
[2017-04-27 11:55] VITALS: BP 148/85; PULSE 73; RESP 20; O2SAT 96
[2017-04-27 12:05] VITALS: BP 169/91; PULSE 77; RESP 18; TEMP 98.4; O2SAT 98
[2017-04-28 05:29] VITALS: BP 180/101; PULSE 69; RESP 18; TEMP 97.6; O2SAT 97
[2017-04-28] MEDS ORDERED: BENZTROPINE MESYLATE 2 MG/2 ML VIAL IM PRN (08:45)
[2017-04-28] MEDS ORDERED: BENZTROPINE MESYLATE 1 MG TAB PO PRN (08:45)
[2017-04-28] MEDS ORDERED: diphenhydrAMINE HCL 50 MG CAP PO PRN (08:45)
[2017-04-28] MEDS ORDERED: cloNIDine HCL 0.1 MG TAB PO PRN (08:45)
--- NOTE | 2017-04-28 08:47 | HHI.HP ---
Provisional Diagnosis Admission Date Apr 27, 2017 at 10:09 Raymond I. 1. Schizoaffective disorder, bipolar type, acute exacerbation Raymond II. Deferred Certification of Person's Competence To Provide Express and Informed Consent I have personally examined Arnaldo Alcazar , a person being served at [facility] on, Apr 28, 2017 08:31. Express and informed consent means consent voluntarily given in writing, by a competent person, after sufficient explanation and disclosure of the subject matter involved to enable the person to make a knowing and willful decision without any element of force, fraud, deceit, duress, or other form of constraint or coercion. This person is 18 years of age or older, is not now known to be incompetent to consent to treatment with a guardian advocate, and does not have a health care surrogate or proxy currently making medical treatment decisions. I have found this person to be one of the following: [] Competent to provide express and informed consent, as defined above, for voluntary admission to this facility and is competent to provide express and informed consent for treatment. He/she has the consistent capacity to make well reasoned, willful, and knowing decisions concerning his or her medical or mental health treatment. The person fully and consistently understands the purpose of the admission for examination/placement and is fully capable of personally exercising all rights [place] [x] Incompetent to provide express and informed consent to voluntary admission, and this is incompetent to provide express and informed consent to treatment. The person must be transferred to involuntary status and a petition for a guardian advocate filed with the Circuit Court. [] Refusing to provide express and informed consent to voluntary admission but is competent to provide express and informed consent for treatment. The person must be discharged or transferred to involuntary status. Form shall be completed within 24 hours of a person's arrival at the receiving facility and filed in the clinical record of each person: 1. Admitted on a voluntary basis 2. Permitted to provide express and informed consent to his/her own treatment 3. Allowed to transfer from involuntary to voluntary status 4. Prior to permitting a person to consent to his or her own treatment after having been previously found incompetent to consent to treatment. 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 Alcazar is a 47-year-old male with a chart history of primary psychotic disorder who presents under a Karft act by law enforcement alleging that the patient threatened to "bludgeon his mother and is in the process of changing medications. Arnaldo stated that he was awaiting his family reunion with Latasha Brasher and others to seal his mother's doom." Patient was evaluated by the psychiatric nurse practitioner in the emergency department who recommended admission to the inpatient psychiatric unit. Reviewing the electronic medical record, I note that the patient was admitted here most recently in [address] Garcia, at which time he was apparently stabilized on Prolixin Decanoate and Klonopin. Patient seen and examined with nurse. Chart reviewed. Case discussed with nursing staff. On my examination today, the patient is hyperverbal and quite animated. He appears to be immersed in his delusional system. He says that his real name is " sentence" as noted above. He says that he is from the [facility] on a top [employer] mission. He says that back in the 1970s he "checked my little pins and told a lot of lies" and was sent out on this mission as a result. The whole narrative is somewhat difficult to follow. He says that he is "an immortal being. I had some things to do." He feels that he is being pursued by "bad people" who are trying to "kill me and all of you." He has not found any of these people on the unit but does endorse HI to "kill 'em all! Attack!" He denies any urge to hurt himself or others on the inpatient unit noting "I'll play it cool." He appears frankly internally stimulated. Affect is somewhat expansive. Psychiatric interview is limited because of the degree of psychiatric decompensation at present. Patient has no physical complaints. Past psychiatric history: Patient is likely an unreliable historian. When asked about previous psychiatric diagnoses he says "they accused me of a lot, but I don't." He is not currently under the care of a psychiatrist he tells me. He says that his most recent psychiatric admission was in July of last year at the [facility]. He denies any history of suicide attempts noting that this is "physically impossible." Family history: The patient reports that his aunt Nga had "the same shit." Chemical dependency history: The patient notes "I love drugs: Crack, weed, booze." He also reports that he occasionally uses LSD, heroin and PCP. He denies any more than casual use of GABAergic agents such as alcohol. Social history: The patient reports that he "live[s] with some fucking bitch who believes she's gonna send us all to hell." He says that he is high school educated with a 4.0 GPA. He is on disability and says that he receives $1600 a month. He is single and has 1 son. Social history is limited because of the degree of psychiatric impairment. Given the patient's degree of psychiatric decompensation, I have endeavored to obtain collateral information from the patient's mother at the number listed in the electronic medical record. I have left a generic voicemail requesting a call back. Tried to reach patient's mother again at 16:44. Left another voicemail requesting call back. Review of Systems ROS Limitations: Psychotic, Poor Historian Except as stated in HPI: all other systems reviewed are Neg Past Psych History Psychological trauma history No reported trauma history to me Violence risk - others (6 mos) Concern for elevated risk. The patient believes that he is being pursued by "bad people" he does endorse a desire to attack these people. He does say that there are no bad people on the unit presently. Violence risk - self (6 mos) Indeterminate. Patient is psychotic and unpredictable. Substance Abuse History Drugs/Alcohol past 12 months See above. Past Family Social History Coded Allergies: divalproex sodium (Unverified Allergy, Severe, HIVES, 04/26/17) gabapentin (Unverified Allergy, Severe, 'GET(S) HOT AND OTHER BAD THINGS, 04/26/17) lithium (Unverified Allergy, Severe, HIVES, 04/26/17) aripiprazole (Unverified Allergy, Intermediate, SPIKES HIS BP, 04/26/17) carbamazepine (Unverified Allergy, Mild, 04/26/17) Past Medical History Patient is unsure if he has any past medical history. Patient is somewhat hypertensive and med rec does include antihypertensives. Active Scripts Fluticasone Nasal [place] (Fluticasone Nasal [place]) 50 Mcg/Act Naspr, 50 MCG EACH NARE BID for Allergy Management, #1 BOTTLE 3 Refills 50 mcg/spray Prov:Lisa Romero MD R3 02/10/16 Losartan (Losartan) 50 Mg Tab, 50 MG PO DAILY for Blood Pressure Management, # 30 TAB 11 Refills Prov:Lisa Romero MD R3 02/10/16 Reported Medications Haloperidol (Haloperidol) 5 Mg Tab, 5 MG PO TID, TAB 0 Refills 04/26/17 Trazodone (Trazodone) 100 Mg Tablet, 100 MG PO HS for Control Depression, #30 TAB 0 Refills 09/06/16 Propranolol (Propranolol) 10 Mg Tab, 10 MG PO Q12HR, #60 TAB 0 Refills 07/31/16 Fluphenazine (Fluphenazine) 10 Mg Tab, 10 MG PO BID 07/31/16 Current Medications Medications (Trade) Dose Ordered Sig/Samia Route Start Time Stop Time Status Last Admin (Tylenol) 650 mg Q4H PRN PO 04/27/17 09:45 (Milk Of Magnesia Liq) 30 ml DAILY PRN PO 04/27/17 09:45 (Mag-Al Plus Susp Liq) 30 ml Q6H PRN PO 04/27/17 09:45 Family Psych History See above Social History See above Patient's Strengths (min. 2) In a monitored setting. Verbally fluent. Physical Exam Physical examination completed by ED provider. On my examination today, the patient appears to be in no acute physical distress. No motor abnormalities noted although the patient is somewhat psychomotor agitated. No signs of withdrawal noted. Labs and vitals reviewed: Vital Signs Vital Signs Date Time Temp Pulse Resp B/P (MAP) Pulse Ox O2 Delivery O2 Flow Rate FiO2 04/28/17 05:29 97.6 69 18 180/101 (127) 97 04/27/17 06:20 Room Air Lab Results Item Value Date Time White Blood Count 8.7 TH/MM3 04/26/17 1240 Hemoglobin 15.0 GM/DL 04/26/17 1240 Platelet Count 292 TH/MM3 04/26/17 1240 Sodium Level 136 MEQ/L 04/26/17 1240 Potassium Level 3.5 MEQ/L 04/26/17 1240 Chloride Level 103 MEQ/L 04/26/17 1240 Carbon Dioxide Level 23.5 MEQ/L 04/26/17 1240 Blood Urea Nitrogen 12 MG/DL 04/26/17 1240 Creatinine 0.88 MG/DL 04/26/17 1240 Estimat Glomerular Filtration Rate 92 ML/MIN 04/26/17 1240 Random Glucose 81 MG/DL 04/26/17 1240 Aspartate Amino Transf (AST/SGOT) 18 U/L 04/26/17 1240 Alanine Aminotransferase (ALT/SGPT) 18 U/L 04/26/17 1240 Alkaline Phosphatase 80 U/L 04/26/17 1240 Thyroid Stimulating Hormone 3rd Gen 0.769 uIU/ML 04/26/17 1240 Urine Opiates Screen NEG 04/26/17 1240 Urine Barbiturates Screen NEG 04/26/17 1240 Urine Amphetamines Screen NEG 04/26/17 1240 Urine Benzodiazepines Screen NEG 04/26/17 1240 Urine Cocaine Screen NEG 04/26/17 1240 Urine Cannabinoids Screen NEG 04/26/17 1240 Ethyl Alcohol Level LESS THAN 3 MG/DL 04/26/17 1240 Urinalysis is bland. EKG reveals sinus rhythm with borderline right axis deviation with a QTC of 383 ms, not prolonged. 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 On my examination today, the patient appears to be in a severely decompensated manic state with psychotic features, in keeping with his historical diagnosis of schizoaffective disorder. The patient is a poor historian but does endorse homicidal ideation directed against the "bad people" whom he feels are pursuing him. Although he does not identify any such people on the unit presently, he certainly represents a risk in the community given this belief. Patient requires psychiatric hospitalization at this time for safety, observation and stabilization. Admit inpatient. Involuntary status. I've completed first opinion. Consult for second opinion. Request healthcare surrogate and guardian advocate. I have not yet been able to make contact with anyone who could serve as health care surrogate and so cannot initiate psychotropic medications at this time. Once contact with healthcare surrogate is made, it will be my intention to initiate antipsychotic treatment, possibly with Prolixin as the patient was on this agent in the past. I will resume the patient's Inderal and losartan for management of hypertension and additionally provide clonidine as needed for markedly elevated blood pressures. Cogentin as needed for EPS, Benadryl as needed for insomnia. Additional psychotropic p.r.n.s anticipated once [facility] has been contacted. Vitals every shift. Counselor to see and obtain collateral. Disposition planning. Estimated length of stay: 1-2 weeks. Discharge Planning Pending psychiatric stabilization. Request HC Surrog/Guard Advoc?: Yes Problem Qualifiers (1) Schizoaffective disorder: Qualified Codes: F25.0 - Schizoaffective disorder, bipolar type Jorge Luis Meredith MD Apr 28, 2017 08:47
[2017-04-28] MEDS: FLUTICASONE PROPIONATE 50 MCG/ACT 16 GM NASAL SPRAY EACH NARE SCH ×2 (09:00→20:45)
[2017-04-28] MEDS: PROPRANOLOL HCL 10 MG TAB PO SCH ×2 (09:00→20:45)
[2017-04-28] MEDS: LOSARTAN 50 MG TAB PO SCH (09:00)
--- NOTE | 2017-04-28 10:03 | EKG ---
Date Performed: 04/28/2017 Time Performed: 07:07:17 PTAGE: 47 years EKG: Sinus rhythm BORDERLINE RIGHT AXIS DEVIATION MODERATE ST DEPRESSION Nonspecific ST-T changes ABNORMAL ECG PREVIOUS TRACING : 09/27/2013 23.38 Compared to prior study, inferior ST-T changes are now pres ent. DOCTOR: Jorge Luis Rasmussen Interpretating Date/Time 04/28/2017 10:01:55
[2017-04-28 12:38] LABS: BICARBONATE 25.2 MEQ/L (21.0-32.0); BLOOD UREA NITROGEN 14 MG/DL (7-18); CALCIUM 9.2 MG/DL (8.5-10.1); CHLORIDE 103 MEQ/L (98-107); CREATININE 0.94 MG/DL (0.60-1.30); GLOMERULAR FILTRATION RATE 86 ML/MIN (>89); GLUCOSE,RANDOM 84 MG/DL (74-106); SODIUM (NA) 135 MEQ/L (136-145)
[2017-04-28 12:40] LABS: CHOLESTEROL 144 MG/DL (120-200); TRIGLYCERIDES 127 MG/DL (42-150)
[2017-04-28 12:44] LABS: CHOLESTEROL/ HDL RATIO 4.61 RATIO; HDL CHOLESTEROL 31.2 MG/DL (40.0-60.0); LDL CHOLESTEROL 87 MG/DL (0-99)
--- NOTE | 2017-04-28 12:50 | PD.PSY.CON ---
Provisional Diagnosis Admission Date Apr 27, 2017 at 10:09 Media I. 1. Seasonal affective disorder, bipolar type, acute exacerbation Media II. Deferred History of Present Illness Service Psychiatry Consult Requested By Psychiatry Reason for Consult Second opinion Primary Care Physician No Primary Care Physician HPI Mr. Alcazar is a 47-year-old male with a chart history of primary psychotic disorder who presents under a [place] act by law enforcement alleging that the patient threatened to "bludgeon his mother and is in the process of changing medications. Arnaldo stated that he was awaiting his family reunion with Latasha Brasher and others to seal his mother's doom." Patient was evaluated by the psychiatric nurse practitioner in the emergency department who recommended admission to the inpatient psychiatric unit. Reviewing the electronic medical record, I note that the patient was admitted here most recently in [address] Garcia, at which time he was apparently stabilized on Prolixin Decanoate and Klonopin.Patient seen and examined with nurse. Chart reviewed. Case discussed with nursing staff. On my examination today, the patient is hyperverbal and quite animated. He appears to be immersed in his delusional system. He says that his real name is " sentence" as noted above. He says that he is from the [facility] on a top secret mission. He says that back in the 1970s he "checked my little pins and told a lot of lies" and was sent out on this mission as a result. The whole narrative is somewhat difficult to follow. He says that he is "an immortal being. I had some things to do." He feels that he is being pursued by "bad people" who are trying to "kill me and all of you." He has not found any of these people on the unit but does endorse HI to "kill 'em all! Attack!" He denies any urge to hurt himself or others on the inpatient unit noting "I'll play it cool." He appears frankly internally stimulated. Affect is somewhat expansive. Psychiatric interview is limited because of the degree of psychiatric decompensation at present. Patient has no physical complaints. The patient is a 47 years old man, homeless man, unemployed, single on SSI, with psychiatric history of self reported bipolar disorder, previous psychiatric hospitalizations, no previous suicidal attempts, cocaine use disorder, occasional use of PCP and LSD, he has established outpatient care in [facility], he says that he is injectable Prolixin, no significant medical history, who was brought to the hospital under [place] act by law enforcement alleging that the patient threatened to "bludgeon his mother and is in the process of changing medications. Arnaldo stated that he was awaiting his family reunion with aLtasha Brasher and others to seal his mother's doom." Patient was consulted to me for second opinion. Chart was reviewed. On psychiatric evaluation the patient is irritable, poorly cooperative, poor historian, he says that the reason he is in the hospital is because his mother called the batteryman to get rid of him. He says that at this moment he prefers not to talk to me "I am from the [employer], I am about to receive a message". He says that he doesn't feel safe here because "I know that people here can attack me". He denies suicidal and homicidal ideation, he denies visual and auditory hallucinations. He is fully oriented 3. Review of Systems Endocrine: DENIES: Heat/cold intolerance, Polydipsia, Polyuria, Polyphagia Ears, nose, mouth, throat: DENIES: Tinnitus, Hearing loss, Vertigo, Nasal discharge, Oral lesions, Throat pain, Hoarseness, Ear Pain, Running Nose, Epistaxis, Sinus Pain, Toothache, Odynophagia Respiratory: DENIES: Apneas, Cough, Snoring, Wheezing, Hemoptysis, Sputum production, Shortness of breath Cardiovascular: DENIES: Chest pain, Palpitations, Syncope, Dyspnea on Exertion , PND, Lower Extremity Edema, Orthopnea, Claudication Gastrointestinal: DENIES: Abdominal pain, Black stools, Bloody stools, Constipation, Diarrhea, Nausea, Vomiting, Difficulty Swallowing, Anorexia Genitourinary: DENIES: Sexual dysfunction, Urinary frequency, Urinary incontinence, Urgency, Hematuria, Dysuria, Nocturia, Penile Discharge, Testicular Pain, Testicular Swelling Musculoskeletal: DENIES: Joint pain, Muscle aches, Stiffness, Joint Swelling, Back pain, Neck pain Integumentary: DENIES: Abnormal pigmentation, Nail changes, Pruritus, Rash Hematologic/lymphatic: DENIES: Bruising, Lymphadenopathy Immunologic/allergic: COMPLAINS OF: Eczema, Urticaria Neurologic: DENIES: Abnormal gait, Headache, Localized weakness, Paresthesias, Seizures, Speech Problems, Tremor, Poor Balance Psychiatric: COMPLAINS OF: Hallucinations, Delusions Past Family Social History Coded Allergies: divalproex sodium (Unverified Allergy, Severe, HIVES, 04/26/17) gabapentin (Unverified Allergy, Severe, 'GET(S) HOT AND OTHER BAD THINGS, 04/26/17) lithium (Unverified Allergy, Severe, HIVES, 04/26/17) aripiprazole (Unverified Allergy, Intermediate, SPIKES HIS BP, 04/26/17) carbamazepine (Unverified Allergy, Mild, 04/26/17) Active Scripts Fluticasone Nasal [place] (Fluticasone Nasal [place]) 50 Mcg/Act Naspr, 50 MCG EACH NARE BID for Allergy Management, #1 BOTTLE 3 Refills 50 mcg/spray Prov:Lisa Romero MD R3 02/10/16 Losartan (Losartan) 50 Mg Tab, 50 MG PO DAILY for Blood Pressure Management, # 30 TAB 11 Refills Prov:Lisa Romero MD R3 02/10/16 Reported Medications Haloperidol (Haloperidol) 5 Mg Tab, 5 MG PO TID, TAB 0 Refills 04/26/17 Trazodone (Trazodone) 100 Mg Tablet, 100 MG PO HS for Control Depression, #30 TAB 0 Refills 09/06/16 Propranolol (Propranolol) 10 Mg Tab, 10 MG PO Q12HR, #60 TAB 0 Refills 07/31/16 Fluphenazine (Fluphenazine) 10 Mg Tab, 10 MG PO BID 07/31/16 Current Medications Medications (Trade) Dose Ordered Sig/Samia Route Start Time Stop Time Status Last Admin (Tylenol) 650 mg Q4H PRN PO 04/27/17 09:45 (Milk Of Magnesia Liq) 30 ml DAILY PRN PO 04/27/17 09:45 (Mag-Al Plus Susp Liq) 30 ml Q6H PRN PO 04/27/17 09:45 (Flonase Renato Spr) 1 spray BID EACH NARE 04/28/17 09:00 04/28/17 09:00 (Cozaar) 50 mg DAILY PO 04/28/17 09:00 04/28/17 09:00 (Inderal) 10 mg Q12HR PO 04/28/17 09:00 04/28/17 09:00 (Catapres) 0.1 mg Q8HR PRN PO 04/28/17 08:45 (Cogentin) 1 mg Q12HR PRN PO 04/28/17 08:45 (Cogentin Inj) 1 mg Q12HR PRN IM 04/28/17 08:45 (Benadryl) 50 mg HS PRN PO 04/28/17 08:45 Family Psych History He denies family psychiatric history Social History Patient was born and raised in [facility], he says that he is now homeless , single, unemployed, supported by [facility] Patient's Strengths (min. 2) In a monitored setting. Verbally fluent. Physical Exam Vital Signs Vital Signs Date Time Temp Pulse Resp B/P (MAP) Pulse Ox O2 Delivery O2 Flow Rate FiO2 04/28/17 05:29 97.6 69 18 180/101 (127) 97 04/27/17 06:20 Room Air Lab Results Test 04/28/17 11:30 Mental Status Examination Appearance: Disheveled Consciousness: Alert, Vigilant Orientation: x4 Motor Activity: Normal gait Speech: Rapid Language: Adequate Fund of Knowledge: Adequate Attention and Concentration: Easily Distracted Memory: Unremarkable Mood: Other (elevated) Affect: Other (expansive) Thought Process & Associations: Other (perseverative on delusional themes) Thought Content: Racing thoughts, 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 Meredith assessment and plan. Consult appreciated. Assessment & Plan Estimated LOS: days Request HC Surrog/Guard Advoc?: Yes Problem Qualifiers (1) Schizoaffective disorder: Qualified Codes: F25.0 - Schizoaffective disorder, bipolar type Johan Graff MD Apr 28, 2017 12:50
[2017-04-28 16:27] LABS: HEMOGLOBIN A1C 6.1 % (4.3-6.0)
[2017-04-28 17:08] VITALS: BP 173/96; PULSE 66; RESP 18; TEMP 98.5; O2SAT 95
[2017-04-28] MEDS ORDERED: HALOPERIDOL LACTATE 5 MG/ML AMP ONE (20:39)
[2017-04-28] MEDS ORDERED: LORazepam 2 MG/ML VIAL ONE (20:40)
[2017-04-29] MEDS: PROPRANOLOL HCL 10 MG TAB PO SCH ×2 (08:16→20:12)
[2017-04-29] MEDS: FLUTICASONE PROPIONATE 50 MCG/ACT 16 GM NASAL SPRAY EACH NARE SCH ×2 (08:18→20:12)
[2017-04-29] MEDS ORDERED: fluPHENAZine HCL 25 MG/10 ML VIAL IM PRN (12:00)
[2017-04-29] MEDS ORDERED: LORazepam 1 MG TAB PO PRN (12:00)
[2017-04-29] MEDS ORDERED: LORazepam 2 MG/ML VIAL IM PRN (12:00)
--- NOTE | 2017-04-29 12:04 | HHI.PYPN ---
Subjective Chief Complaint: psychosis Remarks Patient seen and examined with nurse and nursing students. Chart reviewed. Case discussed with nursing staff who reports that the patient required Haldol ETO overnight for punching a wall. On my examination today, the patient complains of feeling somewhat sedated from the Haldol, although there are no objective signs of excessive sedation. He continues to be paranoid and believes that he is on a "top secret mission." He rambles a little bit about Bill Ansuh. He would like to go back on Prolixin as he says that this agent was more efficacious for him. Patient does complain of some right hand pain, and this was the hand with which he struck the wall reportedly. No other physical complaints. Patient provides an alternate number for his mother Marina: [phone]. Mother reports that the patient typically is "lucid and congenial" but had begun to decompensate after his Prolixin, on which he had been stable for quite a while, had been switched to Haldol for unclear reasons. Patient's mother is unsure if he was taking the Prolixin pills and is fairly certain he was not taking the Haldol. She notes that off of antipsychotic medication he grew increasingly paranoid and threatening towards her. He went 4 days with no sleep. She is agreeable to serving as healthcare surrogate and is in agreement with the treatment plan as outlined below. Review of Systems ROS Limitations: Psychotic, Poor Historian Except as stated in HPI: all other systems reviewed are Neg Mental Status Examination Appearance: Disheveled Consciousness: Alert Orientation: x4 Motor Activity: Other (no hand tremor, no cogwheeling, no dystonias, no dyskinesias, no other motoric abnormalities noted) Speech: Rapid Language: Adequate Fund of Knowledge: Adequate Attention and Concentration: Easily Distracted Memory: Unremarkable Mood: Other (presently calm) Affect: Blunt Thought Process & Associations: Other (remains perseverative on delusional themes) Thought Content: Delusional Hallucination Type: Other (remains internally preoccupied) Delusion Type: Paranoid Suicidal Ideation: No (unreliable to contract for safety) Suicidal Plan: No Suicidal Intention: No Homicidal Ideation: No (unreliable to contract for safety) Homicidal Plan: No Homicidal Intention: No Insight: Poor Judgment: Poor Results Labs Labs reviewed. EKG reveals QTc of 378 ms, not prolonged. Vitals/IOs Vital Signs Date Time Temp Pulse Resp B/P (MAP) Pulse Ox O2 Delivery O2 Flow Rate FiO2 04/28/17 17:08 98.5 66 18 173/96 (121) 95 04/27/17 06:20 Room Air Assessment & Plan Problem List: (1) Schizoaffective disorder ICD Codes: F25.9 - Schizoaffective disorder, unspecified Status: Chronic Assessment & Plan Initiate Prolixin 10 mg twice daily for management of psychosis. Backup IM Prolixin in case the patient refuses oral Prolixin or for severe agitation. Cogentin as needed for EPS. Trazodone as needed for sleep. Ativan as needed for anxiety. Urgent x-ray of right hand to assess for fracture. Consult to the hospitalist for R hand pain. Continue to monitor on inpatient unit. Continue other medications and care as ordered. Justification for Cont. Inpt. Impairment in reality construction. Concern for impairment in safety. High risk for decompensation in less restrictive environment. Discharge Planning Pending psychiatric stabilization Request HC Surrog/Guard Advoc?: Yes Problem Qualifiers (1) Schizoaffective disorder: Qualified Codes: F25.0 - Schizoaffective disorder, bipolar type Jorge Luis Meredith MD Apr 29, 2017 12:04
--- NOTE | 2017-04-29 13:44 | RADRPT ---
EXAM DATE/TIME: 04/29/2017 13:11 [place] COMPARISON: No previous studies available for comparison. INDICATIONS : Pain right hand, especially between 3rd and 4th metacarpals, patient states his hand hit a wall, hand appears swollen MEDICAL HISTORY : None. SURGICAL HISTORY : None. ENCOUNTER: Subsequent ACUITY: 1 day PAIN SCORE: 3/10 LOCATION: Right hand FINDINGS: Two view examination of the right hand demonstrates no soft tissue swelling, dislocation, or fracture . The joint spaces are maintained. Bony mineralization is normal. CONCLUSION: 1. No acute fracture or dislocation. Thang Veronica MD on April 29, 2017 at 13:39 Board Certified Radiologist. This report was verified electronically.
[2017-04-29] MEDS: LOSARTAN 50 MG TAB PO SCH (14:22)
--- NOTE | 2017-04-29 14:28 | PD.CONS ---
HPI Service [facility] Hospitalists Consult Requested By Primary Care Physician No Primary Care Physician Diagnoses: History of Present Illness Mr. Manrique is 47-year-old male. He is admitted related to his schizophrenia disorder. At time of admit he complained of pain of his right hand. He tells me that he fell and landed on his right hand. X-ray imaging was up taking prior to me seeing this patient and he has no evidence of fracture. Sprain is likely present. Short course of anti-inflammatories and Tylenol as needed for pain should be enough to manage this. Patient has no other complaints. He says he has hypertension and takes losartan at baseline. Review of Systems Constitutional: DENIES: Fatigue, Fever, Weight loss, Change in appetite Eyes: DENIES: Blurred vision, Diplopia, Eye inflammation, Eye pain Respiratory: DENIES: Apneas, Cough, Snoring, Wheezing Cardiovascular: DENIES: Chest pain, Palpitations, Syncope Gastrointestinal: DENIES: Abdominal pain, Black stools, Bloody stools, Constipation Musculoskeletal: COMPLAINS OF: Joint pain, Joint Swelling, DENIES: Back pain, Neck pain Integumentary: DENIES: Abnormal pigmentation, Nail changes, Pruritus, Rash Hematologic/lymphatic: DENIES: Bruising, Lymphadenopathy Immunologic/allergic: DENIES: Eczema, Urticaria Neurologic: DENIES: Abnormal gait, Headache, Paresthesias Psychiatric: DENIES: Anxiety, Confusion, Hallucinations Past Family Social History Allergies: Coded Allergies: divalproex sodium (Unverified Allergy, Severe, HIVES, 04/26/17) gabapentin (Unverified Allergy, Severe, 'GET(S) HOT AND OTHER BAD THINGS, 04/26/17) lithium (Unverified Allergy, Severe, HIVES, 04/26/17) aripiprazole (Unverified Allergy, Intermediate, SPIKES HIS BP, 04/26/17) carbamazepine (Unverified Allergy, Mild, 04/26/17) Past Medical History Hypertension Schizophrenia Past Surgical History None Reported Medications Reported Meds & Active Scripts Active Fluticasone Nasal [place] 50 Mcg/Act Naspr 50 Mcg EACH NARE BID 50 mcg/spray Losartan (Losartan Potassium) 50 Mg Tab 50 Mg PO DAILY Reported Haloperidol 5 Mg Tab 5 Mg PO TID Trazodone (Trazodone HCl) 100 Mg Tablet 100 Mg PO HS Propranolol (Propranolol HCl) 10 Mg Tab 10 Mg PO Q12HR Fluphenazine (Fluphenazine HCl) 10 Mg Tab 10 Mg PO BID Active Ordered Medications Administered Medications Medications (Trade) Dose Ordered Sig/Samia Route PRN Reason Start Time Stop Time Status Last Admin Dose Admin Fluticasone Propionate (Flonase Renato Spr) 1 spray BID EACH NARE 04/28/17 09:00 04/29/17 08:18 Losartan Potassium (Cozaar) 50 mg DAILY PO 04/28/17 09:00 04/28/17 09:00 Propranolol HCl (Inderal) 10 mg Q12HR PO 04/28/17 09:00 04/29/17 08:16 Family History Patient does not know of any family medical history in his mother father Social History Patient reports that he smokes Patient smokes marijuana intermittently. Patient denies illicit drug abuse Patient denies alcohol abuse Physical Exam Vital Signs Vital Signs Date Time Temp Pulse Resp B/P (MAP) Pulse Ox O2 Delivery O2 Flow Rate FiO2 04/28/17 17:08 98.5 66 18 173/96 (121) 95 Physical Exam GENERAL: NAD, A&Ox3 HEAD: Normocephalic. NECK: Supple, trachea midline. No lymphadenopathy. EYES: No scleral icterus. No injection or drainage. CARDIOVASCULAR: Regular rate and rhythm without murmurs, gallops, or rubs. RESPIRATORY: Breath sounds equal bilaterally. No accessory muscle use. GASTROINTESTINAL: Abdomen soft, non-tender, nondistended. MUSCULOSKELETAL: No cyanosis, or edema. Tenderness at right hand with decreased range of motion of medial fingers SKIN: Warm and dry. NEURO: No focal neurological deficitis. Result Diagram: 04/26/17 1240 04/28/17 1130 Imaging Last Impressions Hand X-Ray 04/29/17 0000 Signed Impressions: Service Date/Time: April 13:11 - CONCLUSION: 1. No acute fracture or dislocation. Thang Veronica MD Assessment and Plan Problem List: (1) Schizoaffective disorder ICD Code: F25.9 - Schizoaffective disorder, unspecified Status: Chronic Assessment and Plan 47-year-old male admitted secondary schizophrenia complaining of right hand pain Schizophrenia Management per psychiatry Right hand pain Right hand sprain No fractures on imaging Tylenol as needed for pain Naprosyn twice a day for 5 days DVT prophylaxis Patient ambulatory Discharge planning Patient should complete course of treatment as described above No further need for medical follow-up Medical team will sign off at this time Problem Qualifiers (1) Schizoaffective disorder: Qualified Codes: F25.0 - Schizoaffective disorder, bipolar type Daniel Farr MD Apr 29, 2017 14:28
[2017-04-29] MEDS ORDERED: NAPROXEN 500 MG TAB PO ONE (14:30)
[2017-04-29 16:40] VITALS: BP 133/64; PULSE 77; RESP 18; TEMP 98.5; O2SAT 99
[2017-04-29] MEDS ORDERED: traZODone HCL 50 MG TAB PO PRN (21:00)
[2017-04-30 06:31] VITALS: BP 117/59; PULSE 72; RESP 16; TEMP 97.8; O2SAT 98
[2017-04-30] MEDS: LOSARTAN 50 MG TAB PO SCH (08:02)
[2017-04-30] MEDS: NAPROXEN 250 MG TAB PO SCH ×2 (08:02→21:00)
[2017-04-30] MEDS: FLUTICASONE PROPIONATE 50 MCG/ACT 16 GM NASAL SPRAY EACH NARE SCH ×2 (08:02→21:00)
[2017-04-30] MEDS: PROPRANOLOL HCL 10 MG TAB PO SCH ×2 (08:05→21:00)
--- NOTE | 2017-04-30 09:56 | HHI.PYPN ---
Subjective Chief Complaint: psychosis Remarks Patient seen and examined with nurse. Chart reviewed. Case discussed with nursing staff who reports patient has been rambling about being able to kill people this morning. Nurse also expresses concern about patient's right hand which is reportedly weeping cloudy fluid. On my exam, patient is calmer than in previous days. He remains quite delusional and says that he is involved in "top secret stuff." He asks if I was aware of the " call at midnight" last night. He says that this call heralded the end of the world. He tells me calmly "I am God himself." He denies any SI or HI and when asked about comments to nurse regarding killing people, he says this is more mechelle to having a license to kill because of his high station. He does not have any desire to hurt anyone on the unit. He does note that there are "zombies" on the unit. Denies side effects from medications. No physical complaints. Review of Systems ROS Limitations: Psychotic, Poor Historian Except as stated in HPI: all other systems reviewed are Neg Mental Status Examination Appearance: Appropriate (fair grooming) Consciousness: Alert Orientation: x4 Motor Activity: Other (no hand tremor, no cogwheeling, no other motor abnormalities noted) Speech: Unremarkable Language: Adequate Fund of Knowledge: Adequate Attention and Concentration: Easily Distracted Memory: Unremarkable Mood: Other (calm) Affect: Blunt Thought Process & Associations: Other (remains perseverative on delusional themes) Thought Content: Delusional Hallucination Type: Other (internally stimulated) Delusion Type: Paranoid, Other (grandiose) Suicidal Ideation: No (unreliable to contract for safety) Suicidal Plan: No Suicidal Intention: No Homicidal Ideation: No (unreliable to contract for safety) Homicidal Plan: No Homicidal Intention: No Insight: Poor Judgment: Poor Mental Status Exam Remarks Right hand does seem mildly swollen and is indeed weeping a small amount of cloudy fluid from a point at the juncture of the thumb and first finger. Results Labs Labs reviewed. Last Impressions Hand X-Ray 04/29/17 0000 Signed Impressions: Service Date/Time: April 13:11 - CONCLUSION: 1. No acute fracture or dislocation. Thang Veronica MD Vitals/IOs Vital Signs Date Time Temp Pulse Resp B/P (MAP) Pulse Ox O2 Delivery O2 Flow Rate FiO2 04/30/17 06:31 97.8 72 16 117/59 (78) 98 04/27/17 06:20 Room Air Assessment & Plan Problem List: (1) Schizoaffective disorder ICD Codes: F25.9 - Schizoaffective disorder, unspecified Status: Chronic Assessment & Plan Titrate Prolixin to 10mg TID to target psychosis. Culture hand wound and start Keflex pending cultures. Nurse to have hospitalist return and opine further regarding this issue. Continue to monitor on high acuity unit. Continue other medications and care as ordered. Justification for Cont. Inpt. Med changes. Impairment in reality construction. Risk for decompensation in less restrictive environment. Discharge Planning Pending psychiatric stabilization. Request HC Surrog/Guard Advoc?: Yes Problem Qualifiers (1) Schizoaffective disorder: Qualified Codes: F25.0 - Schizoaffective disorder, bipolar type Jorge Luis Meredith MD Apr 30, 2017 09:56
[2017-04-30] MEDS: CEPHALEXIN MONOHYDRATE 500 MG CAP PO SCH ×2 (12:10→21:00)
[2017-04-30 17:00] VITALS: BP 117/69; PULSE 68; RESP 17; TEMP 97.9; O2SAT 100
[2017-05-01] MEDS: LOSARTAN 50 MG TAB PO SCH (08:08)
[2017-05-01] MEDS: FLUTICASONE PROPIONATE 50 MCG/ACT 16 GM NASAL SPRAY EACH NARE SCH ×2 (08:08→20:28)
[2017-05-01] MEDS: CEPHALEXIN MONOHYDRATE 500 MG CAP PO SCH ×2 (08:08→20:27)
[2017-05-01] MEDS: NAPROXEN 250 MG TAB PO SCH ×2 (08:09→20:27)
[2017-05-01] MEDS: PROPRANOLOL HCL 10 MG TAB PO SCH ×2 (08:09→20:27)
--- NOTE | 2017-05-01 16:38 | HHI.PYPN ---
Subjective Chief Complaint: psychosis Remarks Patient was seen and case discussed with nursing. Patient remains acutely psychotic. He has various bizarre delusions she ceiling nuclear weapons and having Latasha Anshu promised to him and there were children. Is jovial and internally stimulated. Compliant with medications and behaving well on the unit Mental Status Examination Appearance: Appropriate (fair grooming) Consciousness: Alert Orientation: x4 Motor Activity: Other (no hand tremor, no cogwheeling, no other motor abnormalities noted) Speech: Unremarkable Language: Adequate Fund of Knowledge: Adequate Attention and Concentration: Easily Distracted Memory: Unremarkable Mood: Other (calm) Affect: Blunt Thought Process & Associations: Other (remains perseverative on delusional themes) Thought Content: Delusional Hallucination Type: Other (internally stimulated) Delusion Type: Paranoid, Other (grandiose) Suicidal Ideation: No (unreliable to contract for safety) Suicidal Plan: No Suicidal Intention: No Homicidal Ideation: No (unreliable to contract for safety) Homicidal Plan: No Homicidal Intention: No Insight: Poor Judgment: Poor Results Labs Date/Time Source Procedure Growth Status 05/01/17 00:00 Wound Hand Gram Stain - Final Resulted 05/01/17 00:00 Wound Hand Wound Culture Pending Resulted Vitals/IOs Vital Signs Date Time Temp Pulse Resp B/P (MAP) Pulse Ox O2 Delivery O2 Flow Rate FiO2 04/30/17 17:00 97.9 68 17 117/69 (85) 100 Assessment & Plan Problem List: (1) Schizoaffective disorder ICD Codes: F25.9 - Schizoaffective disorder, unspecified Status: Chronic Assessment & Plan Continue medications at current doses Justification for Cont. Inpt. Patient would decompensate in a less restrictive setting Request HC Surrog/Guard Advoc?: Yes Problem Qualifiers (1) Schizoaffective disorder: Qualified Codes: F25.0 - Schizoaffective disorder, bipolar type Chris Bridges DO May 01, 2017 16:38
[2017-05-01 19:11] VITALS: BP 138/64; PULSE 58; RESP 17; TEMP 97.5; O2SAT 98
[2017-05-02 05:58] VITALS: BP 111/53; PULSE 50; RESP 17; TEMP 97.7
[2017-05-02] MEDS: FLUTICASONE PROPIONATE 50 MCG/ACT 16 GM NASAL SPRAY EACH NARE SCH ×2 (09:17→20:15)
[2017-05-02] MEDS: NAPROXEN 250 MG TAB PO SCH ×2 (09:17→20:12)
[2017-05-02] MEDS: PROPRANOLOL HCL 10 MG TAB PO SCH ×2 (09:17→20:12)
[2017-05-02] MEDS: CEPHALEXIN MONOHYDRATE 500 MG CAP PO SCH ×2 (09:17→20:12)
[2017-05-02] MEDS: LOSARTAN 50 MG TAB PO SCH (09:17)
--- NOTE | 2017-05-02 14:54 | HHI.PYPN ---
Subjective Chief Complaint: psychosis Remarks Patient was seen and case discussed with nursing. Patient remains with various bizarre delusions. He is pleasantly psychotic. He is not aggressive or intrusive with others. Tolerating his medications well. No outbursts Mental Status Examination Appearance: Appropriate (fair grooming) Consciousness: Alert Orientation: x4 Motor Activity: Other (no hand tremor, no cogwheeling, no other motor abnormalities noted) Speech: Unremarkable Language: Adequate Fund of Knowledge: Adequate Attention and Concentration: Easily Distracted Memory: Unremarkable Mood: Other (calm) Affect: Blunt Thought Process & Associations: Other (remains perseverative on delusional themes) Thought Content: Delusional Hallucination Type: Other (internally stimulated) Delusion Type: Paranoid, Other (grandiose) Suicidal Ideation: No (unreliable to contract for safety) Suicidal Plan: No Suicidal Intention: No Homicidal Ideation: No (unreliable to contract for safety) Homicidal Plan: No Homicidal Intention: No Insight: Poor Judgment: Poor Results Labs Date/Time Source Procedure Growth Status 05/01/17 00:00 Wound Hand Gram Stain - Final Resulted 05/01/17 00:00 Wound Culture - Preliminary Group A Beta Strep Resulted Vitals/IOs Vital Signs Date Time Temp Pulse Resp B/P (MAP) Pulse Ox O2 Delivery O2 Flow Rate FiO2 05/02/17 05:58 97.7 50 17 111/53 (72) 05/01/17 19:11 98 Assessment & Plan Problem List: (1) Schizoaffective disorder ICD Codes: F25.9 - Schizoaffective disorder, unspecified Status: Chronic Assessment & Plan Continue current treatment plan Justification for Cont. Inpt. Patient would decompensate in a less restrictive setting Request HC Surrog/Guard Advoc?: Yes Problem Qualifiers (1) Schizoaffective disorder: Qualified Codes: F25.0 - Schizoaffective disorder, bipolar type Chris Bridges DO May 02, 2017 14:54
[2017-05-02 17:30] VITALS: BP 160/84; PULSE 66; RESP 17; TEMP 99.1; O2SAT 99
[2017-05-03 05:45] VITALS: BP 135/61; PULSE 60; RESP 18; TEMP 97.2; O2SAT 98
[2017-05-03] MEDS: CEPHALEXIN MONOHYDRATE 500 MG CAP PO SCH ×2 (09:00→20:54)
[2017-05-03] MEDS: NAPROXEN 250 MG TAB PO SCH ×2 (09:01→20:54)
[2017-05-03] MEDS: FLUTICASONE PROPIONATE 50 MCG/ACT 16 GM NASAL SPRAY EACH NARE SCH ×2 (09:02→20:54)
[2017-05-03] MEDS: LOSARTAN 50 MG TAB PO SCH (09:02)
[2017-05-03] MEDS: PROPRANOLOL HCL 10 MG TAB PO SCH ×2 (09:02→20:54)
--- NOTE | 2017-05-03 09:04 | HHI.PYPN ---
Subjective Chief Complaint: psychosis Remarks Patient seen and examined with nurse. Chart reviewed. Case discussed with nursing staff who reports the patient remains delusional and believes that he has special jansen. He also has been removing his hand dressing, although when I ask him about this he says he took it off because he was getting a shower. On my examination today, the patient is quite discharge focused. He says "I'm not going to get any better." He insists that he be discharged today so that he can follow up with his outpatient psychiatric provider Frank at [facility]. He denies any SI or HI. He remains somewhat paranoid and makes odd statements at times. We discussed his reported substance use, and the patient is pre-contemplative about changing his pattern of use. No side effects from medications. No physical complaints. Reached out to the patient's mother who expresses concern about whether patient is at baseline. She notes that he can "talk the talk." She would like him observed overnight. I have asked her to make a visit with the patient this evening to see how she thinks he is doing. Review of Systems Except as stated in HPI: all other systems reviewed are Neg Mental Status Examination Appearance: Appropriate Consciousness: Alert Orientation: x4 Motor Activity: Other (no motor abnormalities appreciated) Speech: Unremarkable Language: Adequate Fund of Knowledge: Adequate Attention and Concentration: Adequate Memory: Unremarkable Mood: Other (calm) Affect: Other (superficially euthymic) Thought Process & Associations: Linear Thought Content: Other (somewhat perseverative on discharge) Hallucination Type: None Delusion Type: Other (decreased systematized delusions. Expresses some doubt about previous delusions.) Suicidal Ideation: No Suicidal Plan: No Suicidal Intention: No Homicidal Ideation: No Homicidal Plan: No Homicidal Intention: No Insight: Poor Judgment: Poor Results Labs Date/Time Source Procedure Growth Status 05/01/17 00:00 Wound Hand Gram Stain - Final Resulted 05/01/17 00:00 Wound Culture - Preliminary Group A Beta Strep Staphylococcus Aureus Resulted Labs reviewed. Vitals/IOs Vital Signs Date Time Temp Pulse Resp B/P (MAP) Pulse Ox O2 Delivery O2 Flow Rate FiO2 05/03/17 05:45 97.2 60 18 135/61 (85) 98 Assessment & Plan Problem List: (1) Schizoaffective disorder ICD Codes: F25.9 - Schizoaffective disorder, unspecified Status: Chronic Assessment & Plan Continue Prolixin as ordered. So long as mother finds patient improved, I will plan to administer Prolixin Dec tomorrow. Continue Keflex and follow up sensitivities. Continue to monitor on inpatient unit. Continue other medications and care as ordered. Justification for Cont. Inpt. Risk for decompensation in less restrictive environment Discharge Planning Possible discharge tomorrow. Request HC Surrog/Guard Advoc?: Yes Problem Qualifiers (1) Schizoaffective disorder: Qualified Codes: F25.0 - Schizoaffective disorder, bipolar type Jorge Luis Meredith MD May 03, 2017 09:04
[2017-05-03 16:10] VITALS: BP 153/80; PULSE 58; RESP 18; TEMP 98; O2SAT 100
[2017-05-04 05:46] VITALS: BP 132/86; PULSE 71; RESP 18; TEMP 96.4
[2017-05-04] MEDS: CEPHALEXIN MONOHYDRATE 500 MG CAP PO SCH (08:59)
[2017-05-04] MEDS: PROPRANOLOL HCL 10 MG TAB PO SCH (09:00)
[2017-05-04] MEDS: LOSARTAN 50 MG TAB PO SCH (09:00)
[2017-05-04] MEDS: FLUTICASONE PROPIONATE 50 MCG/ACT 16 GM NASAL SPRAY EACH NARE SCH (09:00)
[2017-05-04] MEDS: NAPROXEN 250 MG TAB PO SCH (09:00)
[2017-05-04] MEDS ORDERED: FLUP10TA PO (12:27)
[2017-05-04] MEDS ORDERED: FLUP1INJ IM (12:27)
--- NOTE | 2017-05-04 12:27 | HHI.DS ---
Psychiatry Discharge Summary Inpatient Psychiatric care?: Yes Advance Directive: No Reason Not Provided: Declined Mental Health AdvanceDirective: No Health Care Proxy: No Admission Admission Date Apr 27, 2017 at 10:09 Admission Diagnosis: (1) Schizoaffective disorder ICD Code: F25.9 - Schizoaffective disorder, unspecified Brief History Mr. Alcazar is a 47-year-old male with a chart history of primary psychotic disorder who presents under a [employer] act by law enforcement alleging that the patient threatened to "bludgeon his mother and is in the process of changing medications. Arnaldo stated that he was awaiting his family reunion with Latasha Brasher and others to seal his mother's doom." Patient was evaluated by the psychiatric nurse practitioner in the emergency department who recommended admission to the inpatient psychiatric unit. Reviewing the electronic medical record, I note that the patient was admitted here most recently in [address] Garcia, at which time he was apparently stabilized on Prolixin Decanoate and Klonopin. Patient seen and examined with nurse. Chart reviewed. Case discussed with nursing staff. On my examination today, the patient is hyperverbal and quite animated. He appears to be immersed in his delusional system. He says that his real name is " sentence" as noted above. He says that he is from the [facility] on a top secret mission. He says that back in the 1970s he "checked my little pins and told a lot of lies" and was sent out on this mission as a result. The whole narrative is somewhat difficult to follow. He says that he is "an immortal being. I had some things to do." He feels that he is being pursued by "bad people" who are trying to "kill me and all of you." He has not found any of these people on the unit but does endorse HI to "kill 'em all! Attack!" He denies any urge to hurt himself or others on the inpatient unit noting "I'll play it cool." He appears frankly internally stimulated. Affect is somewhat expansive. Psychiatric interview is limited because of the degree of psychiatric decompensation at present. Patient has no physical complaints. Past psychiatric history: Patient is likely an unreliable historian. When asked about previous psychiatric diagnoses he says "they accused me of a lot, but I don't." He is not currently under the care of a psychiatrist he tells me. He says that his most recent psychiatric admission was in July of last year at the [facility]. He denies any history of suicide attempts noting that this is "physically impossible." Family history: The patient reports that his aunt Nga had "the same shit." Chemical dependency history: The patient notes "I love drugs: Crack, weed, booze." He also reports that he occasionally uses LSD, heroin and PCP. He denies any more than casual use of GABAergic agents such as alcohol. Social history: The patient reports that he "live[s] with some fucking bitch who believes she's gonna send us all to hel." He says that he is high school educated with a 4.0 GPA. He is on disability and says that he receives $1600 a month. He is single and has 1 son. Social history is limited because of the degree of psychiatric impairment. Given the patient's degree of psychiatric decompensation, I have endeavored to obtain collateral information from the patient's mother at the number listed in the electronic medical record. I have left a generic voicemail requesting a call back. Tried to reach patient's mother again at 16:44. Left another voicemail requesting call back. Tobacco Use In Past 30 Days: 5 or More Cigarettes/Day Alcohol Use: 4 or More Times Per Week Hospital Course Patient was admitted to a locked, inpatient psychiatric unit. A general medical consultation was obtained. Appropriate precautions were in place throughout patient's hospital stay. Patient was seen and examined on the unit by psychiatry and also visited by counselor. Psychotropic medications were adjusted. Patient tolerated medication changes well without side effects. Patient was started on long-acting injectable Prolixin Decanoate. Patient had improvement in presenting psychiatric symptomatology during the course of his hospital stay. Behavior improved with the benefit of psychopharmacologic treatment. There was no evidence of any suicidality or homicidality on the inpatient unit. Patient was compliant with medications. Collateral was obtained from patient's mother. On the day of discharge: Patient seen and examined with nurse. Chart reviewed. Case discussed with nursing staff. Patient has been no behavioral problem overnight. Case discussed in treatment team. Counselor has reached out to the patient's mother, and she is reportedly comfortable with having the patient return home today. On my examination today , the patient is requesting discharge from the inpatient psychiatric unit today. He presents, as promised by his mother earlier in the hospital stay, as fairly lucid and congenial. He denies any suicidal or homicidal ideation, intent or plan on direct questioning and contracts for safety. No urge to hurt his mother. I can elicit no depressive or hypomanic/manic symptoms. He denies any audiovisual hallucinations. Delusional material is considerably attenuated versus admission. The patient says that he is worried about the end of the world, but when I follow up with him on this concern he explains that this is due to reality-based issues (e.g. [facility] having nuclear weapons), and this concern does not seem to have any sort of psychotic basis. I also address his report to nurse yesterday afternoon that "the same thing will happen again." Patient explains that he is of the belief that his mother occasionally has him [employer]ena Acted to get a respite from caring for him. He does not plan on taking any actions that would prompt him to be K[employer] Acted. He denies side effects from medications. No physical complaints. Suicide and violence risk assessment on day of discharge both suggests lower imminent risk, and the patient's level of function is adequate for outpatient care. The patient does not meet criteria for ongoing involuntary psychiatric hospitalization at this time. He is requesting discharge from the inpatient psychiatric unit today, and I have no basis to retain him over his objection. He will be discharged home today with psychiatric follow-up as arranged by counselor. Patient is also to follow-up with primary care. I counseled the patient to abstain from any substances of abuse. I have counseled the patient regarding warning signs for need to return to the psychiatric emergency room as part of a general safety plan. Results Blood Pressure 132 / 86 Vital Signs Date Time Temp Pulse Resp B/P (MAP) Pulse Ox O2 Delivery O2 Flow Rate FiO2 05/04/17 05:46 96.4 71 18 132/86 (101) 05/03/17 16:10 100 Laboratory Results Test 04/28/17 11:30 Cholesterol Level 144 MG/DL (120-200) HDL Cholesterol 31.2 MG/DL (40.0-60.0) Hemoglobin A1c 6.1 % (4.3-6.0) LDL Cholesterol 87 MG/DL (0-99) Triglycerides Level 127 MG/DL (42-150) Summary of Procedures None done Imaging Last Impressions Hand X-Ray 04/29/17 0000 Signed Impressions: Service Date/Time: April 13:11 - CONCLUSION: 1. No acute fracture or dislocation. Thang Veronica MD Pending results at discharge: No Medications # of Antipsychotic meds at D/C: 1 Approp Antipsych med options 1 - Minimum of three failed multiple trials of monotherapy. 2 - Documented plan to taper to monotherapy due to previous use of multiple meds OR cross-taper in progress at D/C. 3 - Documentation of augmentation of Clozapine. 4 - Justification other than those listed in allowable values 1-3, document here : Discharge Discharge Date: May 04, 2017 Discharge Diagnosis: (1) Schizoaffective disorder Diagnosis: Principal (improved versus admission) ICD Code: F25.9 - Schizoaffective disorder, unspecified Status: Chronic Pt Condition on Discharge: Fair Discharge Disposition: Discharge Home Discharge Instructions Diet Instructions: As Tolerated, No Restrictions Activities you can perform: Weight Bearing as Jonathan Scheduled Appointment: as per counselor's notes New Orders: BASIC METABOLIC PROF - 1 Week New Medications: Fluphenazine Decanoate Inj (Fluphenazine Decanoate Inj) 125 Mg/5 Ml Inj 25 MG IM Q21D for Mental Health, #1 VIAL 0 Refills This dose of Prolixin Decanoate is due on 05/25/2017. Cephalexin (Cephalexin) 500 Mg Cap 500 MG PO BID for Health for 3 Days, #6 CAP 0 Refills Fluphenazine (Fluphenazine) 10 Mg Tab 10 MG PO DAILY@0900,1500,2100 for Mental Health for 15 Days, TAB 1 Refill Take oral Prolixin at least until your next Prolixin Decanoate injection or as directed by your outpatient provider. Continued Medications: Fluticasone Nasal [place] (Fluticasone Nasal [place]) 50 Mcg/Act Naspr 50 MCG EACH NARE BID for Allergy Management, #1 BOTTLE 3 Refills 50 mcg/spray Losartan (Losartan) 50 Mg Tab 50 MG PO DAILY for Blood Pressure Management, #30 TAB 11 Refills Propranolol (Propranolol) 10 Mg Tab 10 MG PO Q12HR, #60 TAB 0 Refills Trazodone (Trazodone) 100 Mg Tablet 100 MG PO HS for Control Depression, #30 TAB 0 Refills Discontinued Medications: Fluphenazine (Fluphenazine) 10 Mg Tab 10 MG PO BID Haloperidol (Haloperidol) 5 Mg Tab 5 MG PO TID, TAB 0 Refills Discharge Time > 30 minutes Mental Status Examination Appearance: Appropriate Consciousness: Alert Orientation: x4 Motor Activity: Other (no hand tremor, no dystonia, no dyskinesia, no other motor abnormalities noted.) Speech: Unremarkable Language: Adequate Fund of Knowledge: Adequate Attention and Concentration: Adequate Memory: Unremarkable Mood: Appropriate Affect: Appropriate Thought Process & Associations: Intact Thought Content: Appropriate Hallucination Type: None Delusion Type: Other (delusional material considerably attenuated versus admission. The material that might be interpreted as delusional, e.g. concern about the end of the world, appears to be reality based.) Suicidal Ideation: No Suicidal Plan: No Suicidal Intention: No Homicidal Ideation: No Homicidal Plan: No Homicidal Intention: No Insight: Fair Judgment: Adequate (fair) Discharge/Advance Care Plan Health Problems: (1) Schizoaffective disorder Goals to promote your health * To prevent worsening of your condition and complications * To maintain your health at the optimal level Directions to meet your goals Take your medications as prescribed Follow your dietary instruction Follow activity as directed Keep your appointments as scheduled Take your immunizations and boosters as scheduled If your symptoms worsen call your PCP, if no PCP go to Urgent Care Center or Emergency Room For / questions related to your inpatient stay or results of tests pending at discharge, please contact Dr. Jorge Luis Meredith at Smoking is Dangerous to Your Health. Avoid second hand smoking Problem Qualifiers (1) Schizoaffective disorder: Qualified Codes: F25.0 - Schizoaffective disorder, bipolar type Jorge Luis Meredith MD May 04, 2017 12:27
[2017-05-04] MEDS ORDERED: CEPH500C PO (12:28)
[2017-05-04] MEDS ORDERED: FLUPHENAZINE 2.5 MG/ML IM PRN ×2 (13:30)
--- NOTE | 2017-05-04 14:26 | PD.TTN ---
Patient Problems 1. Discharge planning 2. Medication compliance 3. Knowledge deficit 4. Lack of coping skills Progress Toward Goals Provider Present: Dr. Kanchan Meredith Provider Input: Pt will be discharged home today with necessary scripts. Nurse(s) Present: Jamila Cummings RN Nurse(s) Input: Pt is discharge focused, euthymic and medication compliant. Psychiatric Counselors Present: RIGOBERTO Salazar Psych Therapist Input: Pt will be discharged home today and will be linked with outpatient psychiatric services. Group Spec/RT/OT/JIMENEZ Present: NIDHI Martino Group Spec/RT/OT/JIMENEZ Input: Pt attends the groups activities with no behaviors to note. Discharge Plan [facility] Pt will return home with his mother and will be linked with [facility] for outpatient follow up services. Documentation Scribe: RIGOBERTO Salazar Jonathan LMHC May 04, 2017 14:26
== END 2017-05-04 19:00 | disposition home or self-care (01) | DRG 885 ==
LOC: NEPD 12:11 → NEDA 04-27 10:09 → H270 04-27 12:05
PROVIDERS: ADMIT Psychiatry & Neurology Psychiatry; ATTEND Psychiatry & Neurology Psychiatry
DX: F25.0 Schizoaffective disorder, bipolar type (principal); R45.850 Homicidal ideations; I10 Essential (primary) hypertension; M79.641 Pain in right hand; F12.90 Cannabis use, unspecified, uncomplicated; S63.91XA Sprain of unspecified part of right wrist and hand, initial encounter; H54.8 Legal blindness, as defined in USA; H40.9 Unspecified glaucoma; J44.9 Chronic obstructive pulmonary disease, unspecified; F17.210 Nicotine dependence, cigarettes, uncomplicated; K21.9 Gastro-esophageal reflux disease without esophagitis; W19.XXXA Unspecified fall, initial encounter; Z59.0 Homelessness
CPT/HCPCS: 73120; 80048; 80053; 80061; 80307; 81001; 83036; 84443; 85025; 86403; 87070; 87147; 87186; 87205; 93005; 99285; J1630; J2060; J2680